=== PATIENT | female | born 1960 | race Caucasian/White ===

== ENCOUNTER 2018-04-13 13:24 | Emergency (ER) | payer BC ==
[2018-04-13 13:39] VITALS: TEMP 98.2
[2018-04-13] MEDS ORDERED: SODIUM CHLORIDE 0.9% 500 ML IV STA (14:02)
[2018-04-13] MEDS ORDERED: METOCLOPRAMIDE 5 MG/ML 2 ML VIAL IVP STA (14:03)
[2018-04-13] MEDS ORDERED: MECLIZINE 12.5 MG TAB PO STA (14:03)
--- NOTE | 2018-04-13 14:07 | ED ---
General Adult HPI - General Chief complaint: Dizziness Stated complaint: Dizziness Time Seen by Provider: 04/13/18 13:54 Source: patient, RN notes reviewed Mode of arrival: ambulatory Limitations: no limitations - History of Present Illness Initial comments: Patient is a pleasant 58-year-old female presenting to the emergency department with dizziness. Patient woke up in the middle the night and did feel somewhat dizzy. Patient got up this morning symptoms continue. Dizziness is described as a spinning type sensation. Symptoms worsen with upright position and movements. Symptoms improved with lying flat. No history of similar symptoms previously. Patient did check her blood pressure and found it to be approximately 220/100. - Related Data Home Medications Medication Instructions Recorded Confirmed Nebivolol HCl [Bystolic] 5 mg PO HS 06/21/14 04/13/18 Previous Rx's Medication Instructions Recorded Meclizine [Antivert] 25 mg PO TID PRN #12 tab 04/13/18 Allergies Allergy/AdvReac Type Severity Reaction Status Date / Time piperacillin sodium AdvReac Itching Verified 04/13/18 13:45 [From Zosyn] tazobactam sodium AdvReac Itching Verified 04/13/18 13:45 [From Zosyn] Review of Systems ROS Statement: Those systems with pertinent positive or pertinent negative responses have been documented in the HPI. ROS Other: All systems not noted in ROS Statement are negative. Constitutional: Denies: fever Eyes: Denies: eye pain ENT: Denies: ear pain Respiratory: Denies: dyspnea Cardiovascular: Denies: chest pain Endocrine: Denies: fatigue Gastrointestinal: Denies: abdominal pain Genitourinary: Denies: dysuria Musculoskeletal: Denies: back pain Skin: Denies: rash Neurological: Reports: vertigo. Denies: headache, weakness, confusion Past Medical History Past Medical History: Hypertension Additional Past Medical History / Comment(s): 03/29/15 Pt admitted to floor s/p excision of avulsion fx R patella and patellar tendon repair. Other HX: scoliosis, post menopausal History of Any Multi-Drug Resistant Organisms: None Reported Past Surgical History: Appendectomy, Back Surgery, Bowel Resection, Section, Cholecystectomy, Joint Replacement, Orthopedic Surgery, Tonsillectomy Additional Past Surgical History / Comment(s): 03/29/15 Exciison of avulsion fx R patella and patellar tendon repair R. Other SX: pedro arthroscopic knee(total 5), 06/22/14 total right knee replacement, 4 back surgeries, neurectomy chest area Past Anesthesia/Blood Transfusion Reactions: No Reported Reaction Past Psychological History: No Psychological Hx Reported Smoking Status: Never smoker - Past Family History Mother Family Medical History: Cancer Additional Family Medical History / Comment(s): unknown Father Family Medical History: Cancer General Exam Limitations: no limitations General appearance: alert, in no apparent distress Head exam: Present: atraumatic Eye exam: Present: normal appearance, PERRL, EOMI. Absent: nystagmus ENT exam: Present: normal oropharynx Neck exam: Present: normal inspection Respiratory exam: Present: normal lung sounds bilaterally Cardiovascular Exam: Present: regular rate, normal rhythm GI/Abdominal exam: Present: soft. Absent: tenderness Extremities exam: Present: normal inspection Neurological exam: Present: alert, oriented X3, CN II-XII intact. Absent: motor sensory deficit Expanded Neurological exam: Present: protecting the airway Speech: Present: fluid speech Cranial nerves: EOM's Intact: Normal Cerebellar function: Finger to Nose: Normal Sensory exam: Upper Extremity Light Touch: Normal, Lower Extremity Light Touch: Normal Motor strength exam: RUE: 5, LUE: 5, RLE: 5, LLE: 5 Eye Response: (4) open spontaneously Motor Response: (6) obeys commands Verbal Response: (5) oriented Psychiatric exam: Present: normal affect, normal mood Skin exam: Present: normal color Course Vital Signs 04/13/18 04/13/18 04/13/18 13:35 14:24 15:03 Temperature 98.2 F Pulse Rate 67 53 L 52 L Respiratory 16 18 18 Rate Blood Pressure 213/115 234/107 222/89 O2 Sat by Pulse 100 97 98 Oximetry EKG Findings - EKG Comments: EKG Findings:: Sinus bradycardia 54. DC 148. QRS 80. QT 422. QTC 400. Normal axis. LVH criteria. No acute ST change. Medical Decision Making - Medical Decision Making Patient reevaluated and significantly improved. Blood pressure 185/84. Patient and family updated on results and need for close follow-up. - Lab Data Result diagrams: 04/13/18 14:09 04/13/18 14:09 Lab Results 04/13/18 04/13/18 04/13/18 Range/Units 14:09 14:09 14:09 WBC 8.6 (3.8-10.6) k/uL RBC 5.02 (3.80-5.40) m/uL Hgb 15.5 (11.4-16.0) gm/dL Hct 45.8 (34.0-46.0) % MCV 91.3 (80.0-100.0) fL MCH 30.9 (25.0-35.0) pg MCHC 33.8 (31.0-37.0) g/dL RDW 12.8 (11.5-15.5) % Plt Count 318 (150-450) k/uL Neutrophils % 56 % Lymphocytes % 32 % Monocytes % 5 % Eosinophils % 4 % Basophils % 1 % Neutrophils # 4.9 (1.3-7.7) k/uL Lymphocytes # 2.8 (1.0-4.8) k/uL Monocytes # 0.4 (0-1.0) k/uL Eosinophils # 0.3 (0-0.7) k/uL Basophils # 0.1 (0-0.2) k/uL PT 10.2 (9.0-12.0) sec INR 1.0 (<1.2) APTT 25.0 (22.0-30.0) sec Sodium 141 (137-145) mmol/L Potassium 4.6 (3.5-5.1) mmol/L Chloride 109 H (98-107) mmol/L Carbon Dioxide 24 (22-30) mmol/L Anion Gap 8 mmol/L BUN 14 (7-17) mg/dL Creatinine 0.50 L (0.52-1.04) mg/dL Est GFR (CKD-EPI)AfAm >90 (>60 ml/min/1.73 sqM) Est GFR (CKD-EPI)NonAf >90 (>60 ml/min/1.73 sqM) Glucose 96 (74-99) mg/dL Calcium 9.5 (8.4-10.2) mg/dL Total Bilirubin 0.4 (0.2-1.3) mg/dL AST 30 (14-36) U/L ALT 44 (9-52) U/L Alkaline Phosphatase 81 (38-126) U/L Total Protein 7.0 (6.3-8.2) g/dL Albumin 4.2 (3.5-5.0) g/dL Urine Color Urine Appearance (Clear) Urine pH (5.0-8.0) Ur Specific [employer] (1.001-1.035) Urine Protein (Negative) Urine Glucose (UA) (Negative) Urine Ketones (Negative) Urine Blood (Negative) Urine Nitrite (Negative) Urine Bilirubin (Negative) Urine Urobilinogen (<2.0) mg/dL Ur Leukocyte Esterase (Negative) Urine RBC (0-5) /hpf Urine WBC (0-5) /hpf Ur Squamous Epith Cells (0-4) /hpf 04/13/18 Range/Units 14:30 WBC (3.8-10.6) k/uL RBC (3.80-5.40) m/uL Hgb (11.4-16.0) gm/dL Hct (34.0-46.0) % MCV (80.0-100.0) fL MCH (25.0-35.0) pg MCHC (31.0-37.0) g/dL RDW (11.5-15.5) % Plt Count (150-450) k/uL Neutrophils % % Lymphocytes % % Monocytes % % Eosinophils % % Basophils % % Neutrophils # (1.3-7.7) k/uL Lymphocytes # (1.0-4.8) k/uL Monocytes # (0-1.0) k/uL Eosinophils # (0-0.7) k/uL Basophils # (0-0.2) k/uL PT (9.0-12.0) sec INR (<1.2) APTT (22.0-30.0) sec Sodium (137-145) mmol/L Potassium (3.5-5.1) mmol/L Chloride (98-107) mmol/L Carbon Dioxide (22-30) mmol/L Anion Gap mmol/L BUN (7-17) mg/dL Creatinine (0.52-1.04) mg/dL Est GFR (CKD-EPI)AfAm (>60 ml/min/1.73 sqM) Est GFR (CKD-EPI)NonAf (>60 ml/min/1.73 sqM) Glucose (74-99) mg/dL Calcium (8.4-10.2) mg/dL Total Bilirubin (0.2-1.3) mg/dL AST (14-36) U/L ALT (9-52) U/L Alkaline Phosphatase (38-126) U/L Total Protein (6.3-8.2) g/dL Albumin (3.5-5.0) g/dL Urine Color Light Yellow Urine Appearance Clear (Clear) Urine pH 7.5 (5.0-8.0) Ur Specific [employer] 1.008 (1.001-1.035) Urine Protein Negative (Negative) Urine Glucose (UA) Negative (Negative) Urine Ketones Negative (Negative) Urine Blood Negative (Negative) Urine Nitrite Negative (Negative) Urine Bilirubin Negative (Negative) Urine Urobilinogen <2.0 (<2.0) mg/dL Ur Leukocyte Esterase Moderate H (Negative) Urine RBC <1 (0-5) /hpf Urine WBC 3 (0-5) /hpf Ur Squamous Epith Cells <1 (0-4) /hpf - Radiology Data Radiology results: report reviewed (Computed tomography scan the brain shows no acute intercranial hemorrhage or shift.) Disposition Clinical Impression: Vertigo, Hypertension Disposition: HOME SELF-CARE Condition: Stable Instructions: Dizziness (ED), Hypertension (ED) Additional Instructions: Please follow-up with primary care physician in the next day or 2 for recheck. Have primary care physician review chart as well as recheck blood pressure. Keep an eye on blood pressure at home as well. Return for uncontrolled blood pressure, increased dizziness, confusion, fever, weakness, change in mental status, worsening symptoms or other concerns. [id number] Antivert as needed. Prescriptions: Meclizine [Antivert] 25 mg PO TID PRN #12 tab PRN Reason: dizziness Is patient prescribed a controlled substance at d/c from ED?: No Referrals: Francis Mitchell MD [Primary Care Provider] - 1-2 days Time of Disposition: 15:40
[2018-04-13 14:25] VITALS: RESP 18
[2018-04-13 14:28] LABS: ALT 44 U/L (9-52); AST 30 U/L (14-36); Albumin 4.2 g/dL (3.5-5.0); Alkaline Phosphatase 81 U/L (38-126); Anion Gap 8 mmol/L; Basophils # (A) 0.1 k/uL (0-0.2); Basophils % (A) 1 %; Blood Urea Nitrogen 14 mg/dL (7-17); Calcium 9.5 mg/dL (8.4-10.2); Carbon Dioxide 24 mmol/L (22-30); Chloride 109 mmol/L (98-107); Eosinophils # (A) 0.3 k/uL (0-0.7); Eosinophils % (A) 4 %; Glucose 96 mg/dL (74-99); HCT 45.8 % (34.0-46.0); HGB 15.5 gm/dL (11.4-16.0); Lymphocytes # (A) 2.8 k/uL (1.0-4.8); Lymphocytes % (A) 32 %; MCH 30.9 pg (25.0-35.0); MCHC 33.8 g/dL (31.0-37.0); MCV 91.3 fL (80.0-100.0); Mean Platelet Volume 8.3; Monocytes # (A) 0.4 k/uL (0-1.0); Monocytes % (A) 5 %; Neutrophils # (A) 4.9 k/uL (1.3-7.7); Neutrophils % (A) 56 %; Platelet Count 318 k/uL (150-450); Potassium 4.6 mmol/L (3.5-5.1); RBC 5.02 m/uL (3.80-5.40); RDW 12.8 % (11.5-15.5); Sodium 141 mmol/L (137-145); Total Bilirubin 0.4 mg/dL (0.2-1.3); WBC 8.6 k/uL (3.8-10.6)
[2018-04-13 14:33] LABS: Prothrombin Time 10.2 sec (9.0-12.0)
[2018-04-13] MEDS ORDERED: ENALAPRILAT 1.25 MG/ML 1 ML VIAL IVP STA (15:05)
[2018-04-13 15:23] LABS: Appearance,Urine Clear (Clear); Bilirubin,Urine Negative (Negative); Blood,Urine Negative (Negative); Color,Urine Light Yellow; Glucose,Urine (UA) Negative (Negative); Ketones,Urine Negative (Negative); Leukocyte Esterase,Urine Moderate (Negative); Nitrite,Urine Negative (Negative); PH, Urine 7.5 (5.0-8.0); Protein,Urine Negative (Negative); RBC,Urine <1 /hpf (0-5); Specific Gravity,Urine 1.008 (1.001-1.035); Squamous Epithelial Cell,Urine <1 /hpf (0-4); Urobilinogen,Urine <2.0 mg/dL (<2.0); WBC,Urine 3 /hpf (0-5)
--- NOTE | 2018-04-13 15:26 | CT ---
EXAMINATION TYPE: CT brain wo con DATE OF EXAM: 04/13/2018 HISTORY: Hypertension and dizziness CT DLP: 1132 mGycm. Automated Exposure Control for Dose Reduction was Utilized. TECHNIQUE: CT scan of the head is performed without contrast. COMPARISON: None. FINDINGS: There is no acute intracranial hemorrhage or midline shift identified. There is diffuse v entricular and sulcal prominence consistent with diffuse age-related cerebral atrophy. There is low- attenuation in the periventricular white matter consistent with chronic small vessel ischemic change. The globes are intact and the visualized sinuses are clear. IMPRESSION: No acute intracranial hemorrhage or midline shift.
[2018-04-13 15:39] VITALS: BP 179/84; PULSE 49
== END 2018-04-13 15:52 | disposition home or self-care (01) ==
LOC: EC 13:24
DX: I10 Essential (primary) hypertension (principal); R42 Dizziness and giddiness; R40.2142 Coma scale, eyes open, spontaneous, at arrival to emergency department; R40.2252 Coma scale, best verbal response, oriented, at arrival to emergency department; R40.2362 Coma scale, best motor response, obeys commands, at arrival to emergency department; Z96.651 Presence of right artificial knee joint; Z79.899 Other long term (current) drug therapy; Z88.1 Allergy status to other antibiotic agents
CPT/HCPCS: 36415; 93005; 80053; 85025; 85610; 85730; 81001; 70450; 99284; 96374; 96375; 96361; J2765

== ENCOUNTER → 2018-06-30 | Outpatient (CLI) | payer BC ==
[2018-06-30 15:43] LABS: HCT 40.5 % (34.0-46.0); HGB 13.9 gm/dL (11.4-16.0); MCHC 34.3 g/dL (31.0-37.0); MCV 90.3 fL (80.0-100.0); Mean Platelet Volume 8.2; Platelet Count 323 k/uL (150-450); RBC 4.49 m/uL (3.80-5.40); RDW 13.1 % (11.5-15.5); WBC 9.4 k/uL (3.8-10.6)
[2018-06-30 15:47] LABS: INR 1.1 (<1.2); Partial Thromboplastin Time 24.2 sec (22.0-30.0); Prothrombin Time 10.3 sec (9.0-12.0)
[2018-06-30 16:01] LABS: ALT 35 U/L (9-52); AST 25 U/L (14-36); Albumin 4.2 g/dL (3.5-5.0); Alkaline Phosphatase 75 U/L (38-126); Anion Gap 8 mmol/L; Blood Urea Nitrogen 21 mg/dL (7-17); Carbon Dioxide 29 mmol/L (22-30); Chloride 102 mmol/L (98-107); Glucose 96 mg/dL (74-99); Potassium 4.4 mmol/L (3.5-5.1); Sodium 139 mmol/L (137-145); Total Bilirubin 0.4 mg/dL (0.2-1.3); Total Protein 6.9 g/dL (6.3-8.2)
[2018-06-30 16:09] LABS: Appearance,Urine Clear (Clear); Bilirubin,Urine Negative (Negative); Blood,Urine Negative (Negative); Color,Urine Yellow; Glucose,Urine (UA) Negative (Negative); Ketones,Urine Negative (Negative); Leukocyte Esterase,Urine Large (Negative); Mucus,Urine Rare /hpf; Nitrite,Urine Negative (Negative); Protein,Urine Negative (Negative); RBC,Urine <1 /hpf (0-5); Specific Gravity,Urine 1.018 (1.001-1.035); Squamous Epithelial Cell,Urine 1 /hpf (0-4); Urobilinogen,Urine <2.0 mg/dL (<2.0); WBC,Urine 17 /hpf (0-5)
== END | disposition home or self-care (01) ==
LOC: LABPAT 14:46
PROVIDERS: ATTEND Orthopaedic Surgery
DX: Z01.812 Encounter for preprocedural laboratory examination (principal)
CPT/HCPCS: 36415; 80053; 81001; 85027; 85610; 85730; 87070

== ENCOUNTER 2018-07-14 06:08 | Inpatient (IN) | payer BC ==
[2018-07-09 08:31] VITALS: BMI 31.8
[~2018-07-14 06:08] MED LIST: ACETAMINOPHEN TAB 500 MG TAB PO ONE; ONDANSETRON 4 MG/2 ML VIAL IVP ONE; TRANEXAMIC ACID 1,000 MG in SODIUM CHLORIDE 0.9% 50 ML IVPB ONE; ceFAZolin IN SWFI 2 GM/20 ML SYRINGE IVP ONE
[2018-07-14] MEDS: LACTATED RINGERS 1,000 ML IV SCH ×3 (06:50→20:29)
[2018-07-14] MEDS ORDERED: ROPIVACAINE 246.25 MG, EPINEPHrine 0.5 MG, KETOROLAC 30 MG, cloNIDine HCL/PF 80 MCG, WA... MISCELLANE ONE ×5 (07:45)
[2018-07-14] MEDS ORDERED: ceFAZolin 3,000 MG in SODIUM CHLORIDE 0.9% IRRIGATIO 3,000 ML IRRIGATION ONE (08:21)
[2018-07-14] MEDS ORDERED: LACTATED RINGERS 1,000 ML IV ONE ×2 (09:28)
[2018-07-14] MEDS ORDERED: NALOXONE 0.4 MG/ML 1 ML VIAL IV PRN (09:57)
[2018-07-14] MEDS ORDERED: NA PHOS,M-B/NA PHOS,DI-BA 133 ML ENEMA RECTAL PRN (09:57)
[2018-07-14] MEDS ORDERED: MAGNESIUM HYDROXIDE 2,400 MG/10 ML CUP PO PRN (09:57)
[2018-07-14] MEDS ORDERED: HYDROcodone/APAP 5-325MG 1 EACH TAB PO PRN (09:57)
[2018-07-14] MEDS ORDERED: BISACODYL 10 MG SUPP RECTAL PRN (09:57)
[2018-07-14] MEDS ORDERED: HYDROmorphone 1 MG/ML 1 ML SYRINGE IVP PRN ×2 (09:57)
--- NOTE | 2018-07-14 10:11 | P.OP ---
Date of Procedure: 07/14/18 Procedure(s) Performed: PREOPERATIVE DIAGNOSIS: Left knee severe osteoarthritis with genu varum POSTOPERATIVE DIAGNOSIS: Left knee severe osteoarthritis with genu varum, moderate to severe osteopenia OPERATION: Left knee cemented total replacement arthroplasty. ANESTHESIA: Spinal ESTIMATED BLOOD LOSS: 100 ml. CHEMICAL LABORATORY TECHNICIAN: Lesa Lee PA-C (assistance with: patient positioning, retraction, exposure, hemostasis, leg positioning, implantation, irrigation, closure, dressing) COMPLICATIONS: None apparent. COMPONENTS IMPLANTED: Persona system from [employer] INDICATIONS: Mrs. Lisa is a 58-year-old female with a history of left knee osteoarthritis. She is already successfully undergone right knee replacement from Dr. Haywood. Conservative treatment has been tried and has been unsuccessful in controlling symptoms adequately. The operation of knee replacement has been discussed at length in the office, as well as potential risks and complications. These are inclusive of, but not limited to: bleeding, infection , scarring, discomfort, blood vessel and nerve damage, need for further surgery , failure to relieve symptoms, persistence, recurrence, or worsening of problems , loosening, dislocation, wear, blood clot, pulmonary embolism, , gait dysfunction, stiffness, and other risks as discussed in the office. The patient elects to proceed and the consent form has been signed. PROCEDURE: The patient was taken to the operating room and positioned on the operating room table in the supine position. Anesthesia was initiated. Care was taken to make sure that all pressure points were adequately padded. The operative lower extremity was prepped and draped in the usual aseptic fashion using ChloraPrep. Ioban drape was used for the case and the patient received intravenous antibiotics within one hour of the incision. A pneumotourniquet and leg davies were used for the case. The limb was exsanguinated with an Esmarch bandage and the tourniquet was inflated to 350 mmHg. Time-out was called confirming the patient's identity, side, procedure and administration of antibiotics and tranexamic acid, 1 g IV. The incision was then created midline directly over the knee, carried down through skin and into the subcutaneous tissues and down to fascia. Full thickness subcutaneous medial flap was developed. Medial parapatellar arthrotomy was performed and the interior of the knee was inspected. There was end-stage osteoarthritis of the knee with a mild to moderate genu varum type deformity. The fat pad was excised and proximal medial release on the tibia was completed using meticulous dissection and a curved osteotome. The anterior cruciate ligament was taken down. Note was made of significant attrition of the anterior and significant degenerative appearance of the posterior cruciate ligaments. The exposure was excellent. The knee was flexed 90 degrees and the patella was everted. A spot was chosen on the femur approximately 1 cm anterior to the posterior cruciate ligament insertion and an intramedullary hole was created within the femur. The intramedullary guide was then set to 5 degrees of valgus. The distal cutting block was attached and pinned into position. An appropriate amount of distal femoral resection was set. The oscillating saw was then used to make the distal femoral cut. This cut was confirmed to be flat with the flat end of an osteotome. The retractors were placed around the tibia and the tibial surface was addressed. The angle and depth of resection was adjusted using an extramedullary cutting guide. The guide had a built-in 3 degree posterior slope cut. Once the cutting guide was adjusted appropriately and in line with the axis of the tibia and confirmed to be in good position in relation to the second metatarsal and transmalleolar axis, the tibial cut was then created with protection of the posterior neurovascular structures and the collateral ligaments. The tibial cut surface was removed and sized. Note was made of moderate to severe osteopenia and therefore we prepared for a longer stemmed tibial component. Femoral sizing was then accomplished using anterior referencing. Care was taken to analyze the posterior condyles for signs of deficiency or severe wear, and adjustments to the guide were made, as appropriate. 3 degree external rotation pins were placed. The cutting jig for the femur was applied to these pins. The planned cuts were further analyzed prior to performing them with the oscillating saw. No femoral notching was produced. Bone fragments were removed and the cut surfaces were finished, as necessary, with a reciprocating saw. Spacer block technique was then used to confirm that the flexion and extension gaps were equal. Soft tissue releases and adjustment of the tibial and/or femoral cuts were made, as necessary, until the gaps were equal. This included release of the posterior cruciate ligament, which was tight in this patient. The femur was then further finished for a posterior cruciate ligament substituting component. Patellar resurfacing was performed using a reamer. The size of the required patellar component was estimated and the patellar surface was then reamed down to a residual thickness which would recreate the walker river thickness with the component. The exact placement of the patellar component was adjusted for position based on preoperative x-rays and intraoperative findings. Prior to placing trial components, anesthetic solution consisting of ropivicaine with epinephrine, ketorolac, and clonidine was injected carefully and methodically in a grid pattern using aspiration technique into the soft tissue around the knee circumferentially, starting with the deeper tissues first and progressing to fascia, and then finally the skin/subcutaneous tissue. Particular care was taken when injecting the posterior capsule. The trial components were inserted. The tibial tray was allowed to self center and the patella was noted to track very well. The position of the tibial component was marked and the tibia was then finished for a stemmed tibial component. Cement was mixed on the back table and applied to the final components. Trial components were removed and the cut surfaces of the bone were pulse lavaged thoroughly and dried. Cement was then applied to the tibial surface and pressurized into the surface using finger pressurization technique. The tibial component with a 30 mm stem extension was then applied and excess cement was removed after it was impacted securely and noted to be flush with the cut surface. In similar fashion, the cement was applied to the cut femoral surface, pressurized in using finger pressurization and the component was impacted into place. Excess cement was removed. The polyethylene spacer was then implanted and locked into position. The patellar component was then applied in similar technique and a patellar clamp was used to hold the patella in place as the cement hardened. Once the cement had fully hardened, the knee was reinspected. Any other cement extrusion was removed and final kinematic testing showed range of motion from 0 to 130 degrees with excellent stability, both medially and laterally and appropriate alignment of the leg. Patellar tracking was excellent. The knee was then thoroughly pulse lavaged with normal saline. The tourniquet was deflated and hemostasis was obtained with electrocautery and IV tranexamic acid, 1 g given prior to inflation of the tourniquet and another gram given at the time of closure. Closure was with #2 Ethibond in the fascia and supplemented with #2 Quill, 2-0 Vicryl suture was used for the subcutaneous tissues and 3-0 Quill for the skin. Dermabond/Steri-Strips were then applied. A lightly compressive dressing was applied using Webril and an Efraín wrap. The patient was then [facility] and taken to the recovery room in stable condition. Sponge and needle counts were correct.
[2018-07-14] MEDS ORDERED: HYDROmorphone 1 MG/ML 1 ML SYRINGE IVP ONE ×2 (10:34→11:00)
--- NOTE | 2018-07-14 13:13 | XR ---
EXAMINATION TYPE: XR knee limited LT DATE OF EXAM: 07/14/2018 COMPARISON: NONE TECHNIQUE: Two views submitted HISTORY: Post op FINDINGS: There is a prosthetic knee in near anatomic alignment. There is soft tissue edema and emphysema. IMPRESSION: 1. Postoperative change. Appears in near-anatomic alignment
[2018-07-14] MEDS: HYDROmorphone 1 MG/ML 1 ML SYRINGE IVP PRN ×2 (16:40→23:22)
[2018-07-14] MEDS: ceFAZolin IN SWFI 2 GM/20 ML SYRINGE IVP SCH ×2 (16:41→23:23)
[2018-07-14] MEDS: HYDROcodone/APAP 5-325MG 1 EACH TAB PO PRN (19:01)
[2018-07-14] MEDS: SENNOSIDES-DOCUSATE SODIUM 1 EACH TAB PO SCH (20:29)
[2018-07-15] MEDS: ATORVASTATIN 20 MG TAB PO SCH ×2 (00:01→19:46)
[2018-07-15] MEDS: LISINOPRIL-HCTZ 10-12.5 MG 1 EACH TAB PO SCH ×2 (00:01→19:46)
[2018-07-15] MEDS: HYDROcodone/APAP 5-325MG 1 EACH TAB PO PRN ×2 (00:51→08:03)
[2018-07-15] MEDS: HYDROmorphone 1 MG/ML 1 ML SYRINGE IVP PRN (04:09)
[2018-07-15 07:11] LABS: Basophils # (A) 0.1 k/uL (0-0.2); Basophils % (A) 1 %; Eosinophils # (A) 0.4 k/uL (0-0.7); Eosinophils % (A) 3 %; HCT 38.4 % (34.0-46.0); HGB 11.8 gm/dL (11.4-16.0); Lymphocytes # (A) 2.3 k/uL (1.0-4.8); Lymphocytes % (A) 22 %; MCH 29.1 pg (25.0-35.0); MCHC 30.8 g/dL (31.0-37.0); MCV 94.6 fL (80.0-100.0); Mean Platelet Volume 8.9; Monocytes # (A) 0.6 k/uL (0-1.0); Monocytes % (A) 6 %; Neutrophils # (A) 7.2 k/uL (1.3-7.7); Neutrophils % (A) 68 %; Platelet Count 279 k/uL (150-450); RBC 4.06 m/uL (3.80-5.40); RDW 13.3 % (11.5-15.5); WBC 10.6 k/uL (3.8-10.6)
[2018-07-15] MEDS: LACTATED RINGERS 1,000 ML IV SCH ×3 (07:52→19:42)
--- NOTE | 2018-07-15 07:59 | CONS ---
CONSULTATION DATE OF SERVICE OF CONSULTATION: 07/14/2018. REASON FOR CONSULTATION: Medical management requested by Dr. Siddiqi. CONSULTATION: This is a very pleasant 58-year-old patient of Dr. Mitchell. Chronic stable medical conditions include hypertension, hyperlipidemia, primary osteoarthritis. The patient today underwent left total knee arthroplasty. Pain is controlled. No nausea or vomiting. Patient did tolerate supper. No chest pain or short of breath. Denies any cardiac history. The patient is getting Xarelto for DVT prophylaxis. Lying in bed, comfortable. REVIEW OF SYSTEMS: CONSTITUTIONAL: None. HEENT: None. RESPIRATORY: None. CARDIOVASCULAR: None. GASTROINTESTINAL: None. GENITOURINARY: None. MUSCULOSKELETAL: Arthritic pain in many joints. DERMATOLOGICAL: None. HEMATOLOGIC: None. LYMPHATIC: None. PSYCHIATRY: None. NEUROLOGICAL: None. PAST MEDICAL HISTORY: Past medical history of hypertension, hyperlipidemia, hiatal hernia, osteoarthritis, migraines, scoliosis, diverticulitis, vertigo. PAST SURGICAL HISTORY: Appendectomy, back surgery, bowel resection, , cholecystectomy, joint replacement, bilateral arthroscopic knee, right total knee replacement, 4 back surgeries, neurectomy left side of the chest area. SOCIAL HISTORY: Does not smoke. Alcohol rarely. . FAMILY HISTORY: Family history of cancer type unknown. HOME MEDICATIONS: 1. Zestoretic 05/30.5 one tablet p.o. q.h.s. 2. [place] 5 one to two tablets q.6 p.r.n. 3. Lipitor 20 mg q.h.s. 4. Ventolin HFA 1 or 2 puffs q.6 p.r.n. 5. Tylenol PM 1 tablet p.o. q.h.s. p.r.n. 6. Senokot-S 1 tablet p.o. b.i.d. 7. Xarelto 10 mg p.o. daily. 8. [place] 5 1-2 tablets q.4 p.r.n. 9. Aspirin 81 mg p.o. daily. ALLERGIES: Allergies to Zosyn. PHYSICAL EXAMINATION: On examination, temperature 97.4, pulse 66, respirations 18, blood pressure 135/61, pulse ox 99% on room air. GENERAL APPEARANCE: Well built, BMI 31.9. Lying in bed, comfortable, awake. EYES: Pupils equal. Conjunctivae normal. HENT: External appearance of nose and ears normal. Oral cavity normal. NECK: JVD not raised. Mass not palpable. RESPIRATORY: Effort normal. LUNGS: Fair entry. CARDIOVASCULAR: First and second sounds normal. No edema. ABDOMEN: Soft, nontender. Liver and spleen not palpable. LYMPHATIC: No lymph node palpable of the neck and axillae. PSYCHIATRY: Alert and oriented x3. Mood and affect normal NEUROLOGICAL: Pupils equal. Cranial nerves grossly intact. Power and sensation grossly intact. MUSCULOSKELETAL: Evidence of OA especially in the hands and there is dressing over the left knee. INVESTIGATIONS: Potassium 4.4. BUN 21, creatinine 0.68. Hemoglobin 13.9. These labs are from 06/30/2018. ASSESSMENT: 1. Left total knee arthroplasty. 2. Essential hypertension. 3. Hyperlipidemia. 4. Primary osteoarthritis. 5. Obesity, body mass index 31.9. PLAN: Home medications are resumed. Patient is on IV fluids, pain medications, also on Xarelto for DVT prophylaxis per Dr. Siddiqi. Care was discussed with the patient. Patient should see a dietitian as an outpatient for weight loss. Thank you Dr. Siddiqi. [id number] / IJN: [id number] /
[2018-07-15] MEDS: MELOXICAM 7.5 MG TAB PO SCH (08:02)
[2018-07-15] MEDS: RIVAROXABAN 10 MG TAB PO SCH (08:04)
[2018-07-15] MEDS ORDERED: HYDROcodone/APAP 7.5-325MG 1 EACH TAB PO PRN (08:10)
--- NOTE | 2018-07-15 08:17 | P.DS ---
Providers Date of admission: 07/14/18 06:08 Expected date of discharge: 07/15/18 Attending physician: Wil Siddiqi Consults: 07/14/18 13:07 Consult Physician Urgent Consulting Provider: Francis Mitchell Consult Reason/Comments: medical management Do you want consulting provider notified?: Yes 07/14/18 14:50 Consult Physician Routine Consulting Provider: Ulysses Paris Consult Reason/Comments: medical management Do you want consulting provider notified?: Yes Primary care physician: Francis Mitchell - Discharge Diagnosis(es) (1) Osteoarthritis of left knee Current Visit: Yes Status: Acute (2) Status post total left knee replacement Current Visit: Yes Status: Acute Hospital Course: This is a 58-year-old female who was last seen with complaint of continued left knee pain. The patient has a known history of degenerative arthritis of the left knee and presents to discuss surgical options. After discussion and consideration the patient elects to proceed with total left knee arthroplasty. The patient is seen preoperatively by Dr. Mitchell and cleared for surgery. The patient is admitted to [facility] for total left knee arthroplasty. The procedures performed without complication or sequelae. She is doing well postoperatively. She is having some pain management issues this morning. Vital signs are stable at discharge. Labs are stable at discharge. the patient is ambulating well with walker with minimal assistance. I have increased her Adams to 7.5 mg. We will hopefully get her pain better controlled by this afternoon and plan discharged to home today. The patient is discharged to home on postop day #1 pending medical clearance. Please see orders and refer to the [facility] rec for accurate list of medications. Patient Condition at Discharge: Good Plan - Discharge Summary Discharge Rx Participant: Yes New Discharge Prescriptions: New Aspirin [Adult Low Dose Aspirin EC] 81 mg PO DAILY #1 tablet. Rivaroxaban [Xarelto] 10 mg PO DAILY #5 tab Sennosides-Docusate Sodium [Senokot-S] 1 tab PO BID #60 tablet HYDROcodone/APAP 7.5-325MG [Adams 7.5-325] 1 - 2 tab PO Q4-6H PRN #50 tab PRN Reason: Pain Discontinued HYDROcodone/APAP 5-325MG [Adams 5-325] 1 - 2 tab PO Q6HR PRN PRN Reason: Pain No Action Acetaminophen/Diphenhydramine [Tylenol PM Extra Strength] 1 tab PO HS PRN PRN Reason: Pain Atorvastatin Calcium [Lipitor] 20 mg PO HS Albuterol Inhaler [Ventolin Hfa Inhaler] 1 - 2 puff INHALATION RT-Q6H PRN PRN Reason: Wheezing Lisinopril-Hctz 10-12.5 mg [Zestoretic 10-12.5] 1 tab PO HS Discharge Medication List Acetaminophen/Diphenhydramine [Tylenol PM Extra Strength] 1 tab PO HS PRN [History] Albuterol Inhaler [Ventolin Hfa Inhaler] 1 - 2 puff INHALATION RT-Q6H PRN [History] Atorvastatin Calcium [Lipitor] 20 mg PO HS 07/09/18 [History] Lisinopril-Hctz 10-12.5 mg [Zestoretic 10-12.5] 1 tab PO HS 07/09/18 [History] Aspirin [Adult Low Dose Aspirin EC] 81 mg PO DAILY #1 tablet.dr 07/14/18 [Rx] Rivaroxaban [Xarelto] 10 mg PO DAILY #5 tab 07/14/18 [Rx] Sennosides-Docusate Sodium [Senokot-S] 1 tab PO BID #60 tablet 07/14/18 [Rx] HYDROcodone/APAP 7.5-325MG [Adams 7.5-325] 1 - 2 tab PO Q4-6H PRN #50 tab [Rx] Follow up Appointment(s)/Referral(s): Lesa Lee, PAC [PHYSICIAN EDUCATION PROGRAM MANAGER] - 2 Weeks Ambulatory/Diagnostic Orders: Continuous Passive Motion (CPM) Machine [DME.AMB1] Time Frame: 3 Weeks, Facility : [facility], Location: Case Management Activity/Diet/Wound Care/Special Instructions: WBAT w walker. May shower if no drainage from incision. CPM 5-6h daily.
[2018-07-15] MEDS: hydrOXYzine PAMOATE 25 MG CAP PO PRN ×2 (11:06→13:39)
[2018-07-15] MEDS: HYDROcodone/APAP 7.5-325MG 1 EACH TAB PO PRN ×2 (13:38→19:45)
[2018-07-15] MEDS: SENNOSIDES-DOCUSATE SODIUM 1 EACH TAB PO SCH (19:46)
--- NOTE | 2018-07-16 00:08 | PN ---
PROGRESS NOTE DATE OF SERVICE: 07/15/2018. PRESENTING COMPLAINT: Left knee surgery. INTERVAL HISTORY: Patient is status post left knee surgery, doing well. Has been out of bed. Pain is controlled. No nausea or vomiting. Did tolerate a diet. Did work with Therapy. REVIEW OF SYSTEMS: Done for constitutional, cardiovascular, GI, pulmonary, musculoskeletal; relevant findings as above. CURRENT MEDICATIONS: Reviewed. PHYSICAL EXAMINATION: Temperature 98, pulse 72, respirations 15, blood pressure 122/84, pulse ox 98% on room air. GENERAL APPEARANCE: Lying in bed comfortable. EYES: Pupils equal. Conjunctivae normal. HEENT: External appearance of nose and ears normal. Oral cavity normal. NECK: JVD not raised. Mass not palpable. Respiratory effort normal. LUNGS: Clear. CARDIOVASCULAR: 1st and 2nd sounds normal. No edema. ABDOMEN: Soft, nontender. Liver and spleen not palpable. PSYCHIATRY: Alert and oriented x3. Mood and affect normal. INVESTIGATIONS: White count 10.6, hemoglobin 11.8. ASSESSMENT: 1. Left total knee arthroplasty. 2. Essential hypertension. 3. Hyperlipidemia. 4. Primary osteoarthritis. 5. Obesity, BMI 31.9. PLAN: Care was discussed with the patient. Doing well. Continue treatment plan. MMODL / IJN: [id number] /
[2018-07-16] MEDS: LACTATED RINGERS 1,000 ML IV SCH ×3 (03:11→15:11)
[2018-07-16] MEDS: RIVAROXABAN 10 MG TAB PO SCH (08:20)
[2018-07-16] MEDS: MELOXICAM 7.5 MG TAB PO SCH (08:20)
[2018-07-16] MEDS: HYDROcodone/APAP 7.5-325MG 1 EACH TAB PO PRN ×2 (08:21→15:09)
[2018-07-16 08:25] VITALS: RESP 18
--- NOTE | 2018-07-16 09:46 | P.PN ---
Progress Note - Text Progress Note Date: 07/16/18 This is a 58-year-old female who is status post total left knee arthroplasty. Her discharge was held yesterday secondary to pain management issues. She is feeling better today and ready for discharge home. Incision reveals no erythema or ecchymosis. Minimal soft tissue swelling noted. No active drainage. Dermabond tape is intact. She has full foot ankle motion without difficulty or pain. Neurovascular status to the left lower extremity is intact. Discharge to home today. Please see previous discharge summary and med rec.
[2018-07-16 14:45] VITALS: BP 95/59; PULSE 79; TEMP 98.4
--- NOTE | 2018-07-17 07:19 | PN ---
PROGRESS NOTE DATE OF SERVICE: 07/16/2018 PRESENTING COMPLAINT: Left knee surgery. INTERVAL HISTORY: This patient was seen by me yesterday on 07/16/2018. Doing well. Pain is better controlled. Did tolerate her diet. No nausea, vomiting. No chest pain or short of breath. is present. No new issues. REVIEW OF SYSTEMS: Done for constitutional, cardiovascular, GI, pulmonary, musculoskeletal; relevant findings as above. CURRENT MEDICATIONS: Current medications are reviewed. PHYSICAL EXAMINATION: On examination, temperature 97.7, pulse 97, respiratory 18, blood pressure 120/76, pulse ox 97% on room air. GENERAL APPEARANCE: Sitting up in a chair, comfortable. EYES: Pupils equal. Conjunctivae normal. NECK: JVD not raised. Mass not palpable. RESPIRATORY: Effort normal. Lungs are clear. CARDIOVASCULAR: First and second sounds normal. No edema. ABDOMEN: Soft, nontender. Liver and spleen not palpable. PSYCHIATRY: Alert and oriented x3. Mood and affect normal. INVESTIGATIONS: White count 10.6, hemoglobin 11.8. ASSESSMENT: 1. Left total knee arthroplasty. 2. Essential hypertension. 3. Hyperlipidemia. 4. Primary osteoarthritis. 5. Obesity, body mass index 31.9. PLAN: Care was discussed with the patient and . Questions were answered. Thank you. Follow up with PCP next week. MMODL / IJN: [id number] /
== END 2018-07-16 16:06 | disposition home or self-care (01) | DRG 470 ==
LOC: 2ORMAIN 06:08 → 4SSUR 14:24
PROVIDERS: ADMIT Orthopaedic Surgery; ATTEND Orthopaedic Surgery
PROC: 0SRD0J9 Replacement of Left Knee Joint with Synthetic Substitute, Cemented, Open Approach (ICD-10-PCS; principal; 2018-07-14 08:00)
DX: M17.12 Unilateral primary osteoarthritis, left knee (principal); E66.9 Obesity, unspecified; E78.5 Hyperlipidemia, unspecified; I10 Essential (primary) hypertension; M21.162 Varus deformity, not elsewhere classified, left knee; M41.9 Scoliosis, unspecified; M85.80 Other specified disorders of bone density and structure, unspecified site; Z68.31 Body mass index [BMI] 31.0-31.9, adult; Z79.01 Long term (current) use of anticoagulants; Z79.82 Long term (current) use of aspirin; Z79.899 Other long term (current) drug therapy; Z88.1 Allergy status to other antibiotic agents; Z82.49 Family history of ischemic heart disease and other diseases of the circulatory system
CPT/HCPCS: 85025; 88300

== ENCOUNTER → 2020-04-21 | Outpatient (CLI) | payer BC ==
--- NOTE | 2020-04-21 08:47 | CT ---
EXAMINATION TYPE: CT lumbar spine wo con DATE OF EXAM: 04/21/2020 8:35 AM COMPARISON: None HISTORY: Low connor pain, scoliosis CT DLP: 1384 mGycm Automated exposure control for dose reduction was used. Unenhanced CT of the lumbar spine was performed. Bone and soft tissue window settings are submitted as well as coronal and sagittal reconstructions. There is severe scoliotic curvature convex to the left. L1-L2: Severe degenerative disc space narrowing. No significant disc herniation or disc bulging. No c entral stenosis. Fusion changes noted. No central stenosis. Foramina are patent. L2-L3: Severe degenerative disc space narrowing. No significant disc herniation or disc bulging. No c entral stenosis. Fusion changes noted. No central stenosis. Foramina are patent. L3-L4: Severe degenerative disc space narrowing. No significant disc herniation or disc bulging. No c entral stenosis. Fusion changes noted. No central stenosis. Foramina are patent. L4-L5: 4 mm anterolisthesis L4 and L5. Moderate degenerative disc space narrowing or disc bulge. Post erior elements demonstrate bony fragmentation. There is evidence for moderate central stenosis. Bilat eral foraminal encroachment. L5-S1: Severe degenerative disc space narrowing. No significant disc herniation or disc bulging. No c entral stenosis. Fusion changes noted with posterior bony fragmentation seen.. No central stenosis. F oramina are patent. IMPRESSION: 1. Severe scoliosis convex to the left. 2. Extensive postoperative changes of fusion. 3. Grade 1 anterolisthesis L4 and L5 posterior disc bulge and moderate central stenosis.
== END | disposition home or self-care (01) ==
LOC: RADCTMAIN 07:51
PROVIDERS: ATTEND Orthopaedic Surgery Orthopaedic Surgery of the Spine
DX: M48.061 Spinal stenosis, lumbar region without neurogenic claudication (principal); M43.16 Spondylolisthesis, lumbar region; M51.16 Intervertebral disc disorders with radiculopathy, lumbar region; M41.9 Scoliosis, unspecified; Z98.890 Other specified postprocedural states
CPT/HCPCS: 72131

== ENCOUNTER 2020-06-29 11:18 | Inpatient (IN) | payer BC ==
[2020-06-27 10:11] VITALS: BMI 28.7
[~2020-06-29 11:18] MED LIST changes: -ACETAMINOPHEN TAB 500 MG TAB PO ONE; +DEXAMETHASONE SOD PHOSPHATE 4 MG/ML 1 ML VIAL IV ONE; +LIDOCAINE 1% (10MG/ML) FOR IV START INTRADERMA PRN; -TRANEXAMIC ACID 1,000 MG in SODIUM CHLORIDE 0.9% 50 ML IVPB ONE; +ceFAZolin 1,000 MG in SODIUM CHLORIDE 0.9% IRRIGATIO 1,000 ML IRRIGATION ONE; -ceFAZolin IN SWFI 2 GM/20 ML SYRINGE IVP ONE
[2020-06-29] MEDS: LACTATED RINGERS 1,000 ML IV SCH ×2 (12:14→21:37)
[2020-06-29] MEDS ORDERED: GLYCOPYRROLATE 0.2 MG/ML 2 ML VIAL ONE (12:33)
[2020-06-29] MEDS ORDERED: ONDANSETRON 4 MG/2 ML VIAL ONE (12:33)
[2020-06-29] MEDS ORDERED: HEPARIN SODIUM,PORCINE 10,000 UNIT/ML 1 ML VIAL ONE (12:33)
[2020-06-29] MEDS ORDERED: PROPOFOL 10 MG/ML 20 ML VIAL IV ONE (12:33)
[2020-06-29] MEDS ORDERED: SODIUM CHLORIDE 0.9% IRRIG 1,000 ML BTL IRRIGATION ONE (12:33)
[2020-06-29] MEDS ORDERED: SUCCINYLCHOLINE CHLORIDE 100 MG/5 ML SYR IV ONE (12:33)
[2020-06-29] MEDS ORDERED: KETAMINE 10 MG/ML 20 ML VIAL ONE (12:33)
[2020-06-29] MEDS ORDERED: MIDAZOLAM 2 MG/2 ML VIAL ONE (12:33)
[2020-06-29] MEDS ORDERED: PHENYLEPHRINE-0.9% NACL SYG 1 MG/10 ML SYRINGE ONE (12:33)
[2020-06-29] MEDS ORDERED: LIDOCAINE 1% INJ 10MG/ML (20 ML MDV) ONE (12:33)
[2020-06-29] MEDS ORDERED: fentaNYL (PF) 50 MCG/ML 2 ML AMP ONE (12:33)
[2020-06-29] MEDS ORDERED: NEOSTIGMINE 1 MG/ML 10 ML VIAL ONE (12:33)
[2020-06-29] MEDS ORDERED: ROCURONIUM 10 MG/ML (10 ML VIAL) IV ONE (12:33)
[2020-06-29] MEDS ORDERED: GELATIN SPONGE,ABSORB (LARGE) 1 EACH SPONGE TOPICAL ONE (12:38)
[2020-06-29] MEDS ORDERED: LIDOCAINE 0.5%-EPI 1:200,000 50 ML VIAL SQ ONE (12:38)
[2020-06-29] MEDS ORDERED: THROMBIN (BOVINE) 5,000 UNIT VIAL TOPICAL ONE (12:38)
[2020-06-29] MEDS ORDERED: LACTATED RINGERS 1,000 ML IV ONE ×2 (14:25→18:33)
[2020-06-29] MEDS ORDERED: HYDROmorphone 0.5 MG/0.5 ML SYRINGE IVP PRN (15:48)
[2020-06-29] MEDS ORDERED: ONDANSETRON 4 MG/2 ML VIAL IVP PRN (15:48)
[2020-06-29] MEDS ORDERED: HYDROcodone/APAP 5-325MG 1 EACH TAB PO PRN ×3 (15:48→15:51)
[2020-06-29] MEDS ORDERED: MAGNESIUM HYDROXIDE 2,400 MG/10 ML CUP PO PRN (15:48)
[2020-06-29] MEDS ORDERED: BENZOCAINE/MENTHOL LOZENG 1 EACH LOZENGE MUCOUS MEM PRN (15:48)
--- NOTE | 2020-06-29 15:53 | FL ---
Fluoroscopy History: Min Inv Lum Fusion Minimally invasive lumbar fusion. Dr. Menjivar. 22 sec fluoro time. 2 images scanned.
[2020-06-29] MEDS: HYDROmorphone 1 MG/ML 1 ML SYRINGE IVP ONE ×4 (15:58→16:21)
--- NOTE | 2020-06-29 16:01 | P.OP ---
Date of Procedure: 06/29/20 Preoperative Diagnosis: Scoliosis, pseudoarthrosis L4 5, history of prior thoracic lumbar fusion, low back pain, degenerative disc disease, lower extremity radiculopathy Postoperative Diagnosis: Same Anesthesia: GETA Pathology: none sent Condition: stable Disposition: PACU Description of Procedure: DESCRIPTION OF PROCEDURE(S): BRIEF OPERATIVE NOTE Preoperative Diagnosis: Scoliosis, pseudoarthrosis L4 5, history of prior thoracic lumbar fusion, low back pain, degenerative disc disease, lower extremity radiculopathy Postoperative Diagnosis: Same Procedure: Laminectomy and decompression L4 [address] navigation aided Minimally invasive revision Posterior lateral decompression and facet fusion L4 5 Minimally invasive Transforaminal lumbar interbody revision fusion for a 360 fusion L4 5 Discectomy for decompression L4 5 Placement of interbody graft for 5 Use of computer navigation for fusion Local autogenous bone grafting Aspiration of bone marrow from the vertebral body pedicle L4 on the right Use of bone graft extenders Surgeon: Dr. Menjivar Information Technology Audit Manager: Edward WINTER who is present throughout the entire the case persistence during positioning, dissection, exposure, visualization, and all crucial elements of the case as well as closure. Anesthesia: General anesthesia per Estimated blood loss: Approximately 150 mL Complications: None apparent Components implanted: K2M minimally invasive Glasgow pedicle screw system withscrews measuring 6.5 mm in diameter to rods one expandable 8-13 interbody cage with 10 mL of osteo amp bio4 bone graft substitute and 30 mL of the BX bone fibers to supplement the local autogenous bone graft and bone marrow aspirate Disposition: To recovery room in good stable condition. OPERATIVE INDICATIONS The patient has had severe issues at their lower extremity in her lower back over the past several years with significant worsening over the past several months. The patient has a long history of scoliosis and in her youth she underwent major thoracolumbar fusion of her scoliosis. She overall she had a good result she had her hardware removed in the distant past. She had done well except that over the past several years she has had some worsening pain at her lower back. Over the past few months the patient had increasing pain pain at her back particularly when she would try to mobilize and ambulate and her lower extremity. She is having worsening mobility and significant debility because of her pain at her lower back The patient is having significant pain in her back. They are unable to obtain any comfort. We did aggressive conservative treatment with medications therapy and interventional pain management however she was not having any relief. The patient has been through conservative treatment. I think it is possible patient had long-standing pseudoarthrosis which was essentially stable for her. However she had some issues and I think developed instability at the pseudoarthrosis at L4 5. Imaging correlated with the pseudoarthrosis at L4 5 and her exam: With her imaging and symptoms I felt that the vast majority of her symptoms are stemming from the pseudo arthrosis at L4 5. We discussed various treatment options including surgery, and the patient wishes to proceed with surgery We discussed the risk, patient's alternatives and benefits of surgery including but not limited to, risk of bleeding risk of infection, risk of need for further surgery, risk of decreased, loss of motion, muscle function, malunion nonunion, hardware failure, nerve damage, paralysis, heart attack, blindness and . They understood issues with the current pandemic and the possibility of exposure. OPERATIVE SUMMARY After discussing all the risks, patient alternatives and benefits at length, the patient elected to proceed with surgical intervention, signed informed consent, and presented for their procedure. The patient was seen and examined in the preoperative holding area and the surgical site was marked. The patient was given antibiotics and brought to the operating room. The patient was sedated and intubated by anesthesia in standard fashion. The patient was positioned on to the operating room table in a prone position on the appropriate frame which was well-padded and well molded. We were careful to pad any bony prominences and pressure points. We were careful to maintain the patient's cervical spine and good neutral alignment and position throughout. The patient was prepped and draped in a normal standard fashion. An appropriate timeout and keystone protocol performed. We were able to proceed with the surgery. The local wound area was infiltrated with local anesthetic. Over the right iliac crest I was able to make small stab incisions and establish a guidepin screw fixation to the iliac crest 2. I was able place the computer referencing device over the guidepins to establish an appropriate reference point for the Ziem CT navigation. We then were able to place patient in an appropriate drape and do a navigation spin for visualization and 3-D reconstruction of the lumbar spine. I was able utilize C-arm guidance and navigation to establish appropriate position over the pedicles bilaterally at the appropriate levels . With the appropriate levels confirmed was able to make small stab incisions over the appropriate pedicle sites bilaterally. Utilizing the computer navigation device I was able to establish bony landmarks at the right iliac crest for a bony reference point for the navigation device. These navigation device was extremely helpful in this case as patient had major deformity with prior surgeries and significant altered anatomy which would've made a standard procedure much more difficult. The CT navigation device allowed us to navigate through the anatomy with more reliable safety and position. I was able to establish a Jamshidi needle over the lateral aspect of the pedicle and advanced the trocar into the pedicle being careful not to breech superiorly inferiorly medially or laterally using computer navigation device. Position was confirmed regularly with AP and lateral images on C-arm and with the computer navigation device at the appropriate levels bilaterally. I was able to establish the trocar into the pedicle appropriately into the posterior aspect of the vertebral body bilaterally at the appropriate levels. This was done at each of the pedicle positions and each of the vertebrae. At the superior vertebrae of L4 I was able to take approximately 25 mL of bone aspiration for use later in the case to supplement the allograft and autograft bone. I was able place the guidewire into the trocar and into the vertebral body appropriately under C-arm guidance. Dissection was taken down over the wire to the appropriate starting position for the screw placed. The appropriate length screw was chosen, threaded over the guidewire and screwed appropriately into the pedicle and vertebral body under C-arm guidance in excellent alignment and position with good bony purchase. This is done at each of the screw sites at the appropriate levels at L4 and 5.. With the screws intact I extended the incision to connect the screw hole sites on the most symptomatic side on the left. I dissected down to establish access over the pars and lamina to the base of the spinous process. I was able to expose the facet joint. There is significant amounts of heterotopic bone from her prior fusion which had to be harvested and taken down. The capsule the facet was taken down and showed some facet arthrosis at the joint. I was able to use a combination of curettes and Kerrison rongeurs and a high-speed drill to take down the facet joint and do a facetectomy. I was able get excellent foraminal decompression and central decompression with undermining across midline to perform a laminectomy centrally and contralaterally. As able get good central decompression. The ligamentum flavum was taken down to further decompress centrally and at bilateral neural foramen. I was able to expose the disc space and visualize the traversing nerve root. Note was made of some disc protrusion and disc herniation that was abutting the traversing nerve root at the level causing further compression of the nerve root. I was able to establish a annulotomy at the appropriate level protecting soft tissue and neural structures. Note was made of some disc desiccation at the disc. I performed a complete discectomy with accommodation of curettes and rasps and scrapers. I was able get good endplate preparation at the disc space. I sized for the appropriate size interbody spacer protecting the soft tissue and neural structures. The wound was copiously irrigated and suctioned dry. There is no evidence of any dural tear or leak. I was able to pack the disc space with local autogenous bone graft as well as a small amount of bone graft which was also placed into the interbody cage itself. Protecting the soft tissue structures and neural structures I was able place the interbody cage in good alignment and good position. We used C-arm guidance and were able to expand the cage with good fit and fill at the interbody space. Position was confirmed with C-arm guidance. Good hemostasis maintained. There is no evidence of any dural tear or leak. The wound was irrigated and suctioned dry. With the hardware intact, intraoperative C-arm imaging was again taken which showed good alignment and position of the hardware at the appropriate levels. We were then able to measure, contour and place the rods and appropriate hardware bilaterally. I was able to place capcrews, tighten them down, and torque them with the torque screwdriver appropriately. With this intact I was able to place the local autogenous bone graft with additional bone graft enhancer as necessary into the posterior lateral gutters over the decorticated transverse processes and facet joints on the contralateral side. The remainder of the bone graft was placed over the facet joint on the contralateral side after taking down the facet joint capsule. With the bone graft intact, a stable construct, and good decompression at the appropriate levels, we were able to proceed with closure. Good hemostasis was maintained. There is no evidence of dural tear or leak. The fascia was closed for a watertight closure. he subcuticular tissue was closed with absorbable suture. The wound was cleaned and dried and dressed with the appropriate dressing. The drapes were broken down. The patient was gently rolled back onto their hospital bed being careful to maintain their cervical spine and good neutral alignment and position. They were woken up by anesthesia, extubated, and brought to the recovery room in good stable condition. The patient will be admitted to the hospital for appropriate postoperative care, medical management and monitoring. We will continue to follow them closely about the postoperative course.
[2020-06-29] MEDS ORDERED: fentaNYL (PF) 50 MCG/ML 2 ML AMP IVP ONE ×2 (16:55→17:05)
[2020-06-29] MEDS ORDERED: MEPERIDINE 50 MG/ML SYRINGE IVP ONE (18:00)
[2020-06-29] MEDS: HYDROmorphone 1 MG/ML 1 ML SYRINGE IVP PRN (20:53)
[2020-06-29] MEDS: GABAPENTIN 300 MG CAP PO SCH (20:54)
[2020-06-29] MEDS: LISINOPRIL-HCTZ 10-12.5 MG 1 EACH TAB PO SCH (20:54)
[2020-06-29] MEDS: ATORVASTATIN 20 MG TAB PO SCH (20:54)
[2020-06-29] MEDS: SODIUM CHLORIDE 0.9% 1,000 ML IV SCH (20:56)
--- NOTE | 2020-06-29 22:33 | P.CONS ---
History of Present Illness - Reason for Consult Consult date: 06/29/20 - History of Present Illness Patient is a 60-year-old female with a PMH of hypertension, hyperlipidemia, scoliosis, and lumbago who was admitted to the hospital for elective spinal procedures including laminectomy and decompression of L4/L5 and discectomies. The underwent the procedure earlier today with no immediate postoperative complications. Patient was seen on the surgical unit. She reported her pain at the surgical sites to be a 4 out of 10. He notes that she has not yet gotten out of bed or passed flatus. Denied any additional complaints. Denied chest pain, shortness of breath, nausea, vomiting. Denied abdominal pain, diarrhea, fever, chills, or cough. Reports compliance with her medications at home. Review of Systems Pertinent positives and negatives as discussed in HPI, a complete review of systems was performed and all other systems are negative. Past Medical History Past Medical History: Hyperlipidemia, Hypertension, Musculoskeletal Disorder Additional Past Medical History / Comment(s): Scoliosis, Degenerative Joint Disease, Hiatal Hernia, hx Diverticulitis. History of Any Multi-Drug Resistant Organisms: None Reported Past Surgical History: Appendectomy, Back Surgery, Bowel Resection, Section, Cholecystectomy, Joint Replacement, Orthopedic Surgery, Tonsillectomy Additional Past Surgical History / Comment(s): Excison of avulsion fx R patella and patellar tendon repair, bilateral arthroscopic knee(total 5), bilateral knee replacements, 4 back surgeries, right neurectomy chest area. Past Anesthesia/Blood Transfusion Reactions: No Reported Reaction Past Psychological History: No Psychological Hx Reported Smoking Status: Never smoker Past Alcohol Use History: None Reported Past Drug Use History: None Reported - Past Family History Mother Family Medical History: Cancer Additional Family Medical History / Comment(s): . Father Family Medical History: Liver Disease Additional Family Medical History / Comment(s): Cirrhosis of the liver-etoh abu se. Medications and Allergies Home Medications Medication Instructions Recorded Confirmed Type Atorvastatin Calcium [Lipitor] 20 mg PO HS 07/09/18 06/29/20 History Lisinopril-Hctz 10-12.5 mg 1 tab PO HS 07/09/18 06/29/20 History [Zestoretic 10-12.5] Cyclobenzaprine [Flexeril] 10 mg PO TID PRN 06/27/20 06/29/20 History Gabapentin 600 mg PO HS 06/27/20 06/29/20 History HYDROcodone/APAP 5-325MG [[place] 1 tab PO TID PRN 06/27/20 06/29/20 History 5-325] Allergies Allergy/AdvReac Type Severity Reaction Status Date / Time piperacillin sodium AdvReac Itching Verified 06/29/20 11:48 [From Zosyn] tazobactam sodium AdvReac Itching Verified 06/29/20 11:48 [From Zosyn] Physical Exam Vitals: Vital Signs Temp Pulse Resp BP Pulse Ox 06/29/20 19:55 98.3 F 105 H 18 155/89 100 06/29/20 18:44 100 16 130/78 94 L 06/29/20 18:15 99 16 134/79 96 06/29/20 17:45 98 16 142/67 99 06/29/20 17:15 99 16 144/78 100 06/29/20 16:45 94 16 145/68 98 06/29/20 16:34 95 16 146/69 100 06/29/20 16:19 92 16 154/71 100 06/29/20 16:04 85 16 161/77 100 06/29/20 15:49 105 H 16 159/76 99 06/29/20 11:50 97.7 F 115 H 17 148/92 98 Intake and Output 06/29/20 06/29/20 06/29/20 06:59 14:59 22:59 Intake Total 1351 450 Output Total 475 Balance 1351 -25 Intake: IV 1351 450 Output: Urine 375 Estimated Blood Loss 100 Other: Weight 73.5 kg General: non toxic, no distress, appears at stated age, overweight Derm: no unusual rashes/lesions no unusual ecchymoses, warm, dry Head: atraumatic, normocephalic, symmetric Eyes: EOMI, no lid lag, anicteric sclera, pupils equal round reactive to light ENT: Nose and ears atraumatic, no thrush, no pharyngeal erythema Neck: No thyromegaly, no cervical lymphadenopathy, trachea midline, supple Mouth: no lip lesion, mucus membranes moist Cardiovascular: S1S2 reg, no murmur, positive posterior tibial pulse bilateral, no edema, capillary refill less than 2 seconds Lungs: CTA bilateral, no rhonchi, no rales , no accessory muscle use Abdominal: soft, nontender to palpation, no guarding, no appreciable organomegaly, normal bowel sounds Ext: no gross muscle atrophy, muscle strength 5 out of 5 in all 4 extremities grossly, no contractures, dressings on back appear clean and dry Neuro: CN II-XI grossly intact, light touch intact all 4 extremities, finger to nose within normal limits, Psych: Alert, oriented, appropriate affect Assessment and Plan Plan: Hypertension -Continue with home lisinopril 10 and hydrochlorothiazide 12.5 Hyperlipidemia -Continue with home Lipitor 20 mg Scoliosis and spinal degenerative joint disease status post laminectomy and decompression -Defer management including pain control to orthopedic surgery
[2020-06-30] MEDS: HYDROmorphone 1 MG/ML 1 ML SYRINGE IVP PRN ×5 (00:30→19:18)
[2020-06-30] MEDS: CYCLOBENZAPRINE 10 MG TAB PO PRN (00:30)
[2020-06-30] MEDS: SODIUM CHLORIDE 0.9% 1,000 ML IV SCH ×2 (05:42→17:48)
[2020-06-30 06:50] LABS: Basophils % (A) 0 %; Eosinophils # (A) 0.3 k/uL (0-0.7); Eosinophils % (A) 3 %; HCT 36.5 % (34.0-46.0); HGB 12.1 gm/dL (11.4-16.0); Lymphocytes # (A) 1.1 k/uL (1.0-4.8); Lymphocytes % (A) 13 %; MCH 29.4 pg (25.0-35.0); MCHC 33.2 g/dL (31.0-37.0); MCV 88.7 fL (80.0-100.0); Mean Platelet Volume 7.7; Monocytes # (A) 0.4 k/uL (0-1.0); Monocytes % (A) 5 %; Neutrophils # (A) 6.5 k/uL (1.3-7.7); Neutrophils % (A) 78 %; Platelet Count 272 k/uL (150-450); RBC 4.12 m/uL (3.80-5.40); RDW 12.1 % (11.5-15.5); WBC 8.3 k/uL (3.8-10.6)
[2020-06-30] MEDS: SENNOSIDES-DOCUSATE SODIUM 1 EACH TAB PO SCH (09:00)
--- NOTE | 2020-06-30 09:14 | P.PN ---
Progress Note - Text Progress Note Date: 06/30/20 Postoperative day #1 Patient is seen and examined today at bedside. The patient has some pain around the surgical site as expected. Pain is being controlled with medication. She has significant itching with [place] and would like to try Ultram. She feels her legs are doing well. Pain is primarily focused on her lower back and toward her hips bilaterally Physical Exam Afebrile with stable vital signs Abdomen is soft nontender. Chest has good excursion deep and space expiration The incision site is clean dry and intact. No erythema there is no purulence. Extremities have not had neurologic change from prior to surgery. She has sustained dorsal flexion plantarflexion and EHL intact Calves and thighs were soft nontender without evidence of DVT. Assessment/Plan Postoperative day #1 status post revision fusion at L4 5 for pseudoarthrosis at L4 5 history of long segment thoracic or lumbar scoliosis surgery Patient is progressing as expected from the surgery. We will continue to increase the patient's mobilization with therapy. We will get her up out of bed today Will discontinue her Rivera and encourage her incentive spirometry She is changing over Ultram and hopefully that'll give her some relief without the itching We will continue pain control with oral or IV medications. We'll continue to follow patient closely.
[2020-06-30] MEDS: LACTATED RINGERS 1,000 ML IV SCH (09:45)
[2020-06-30 10:18] LABS: African American GFR (CKD) 113.2 (60.0-200.0); Anion Gap 6.4 mmol/L (4.00-12.00); BUN/Creat Ratio 23.33 Ratio (12.00-20.00); Calcium 8.8 mg/dL (8.7-10.3); Carbon Dioxide 27.6 mmol/L (21.6-31.8); Non-African American GFR(CKD) 97.7 (60.0-200.0); Potassium 3.9 mmol/L (3.5-5.5)
[2020-06-30] MEDS: traMADol 50 MG TAB PO PRN ×3 (12:04→23:12)
[2020-06-30] MEDS: GABAPENTIN 300 MG CAP PO SCH (19:23)
[2020-06-30] MEDS: LISINOPRIL-HCTZ 10-12.5 MG 1 EACH TAB PO SCH (19:24)
[2020-06-30] MEDS: ATORVASTATIN 20 MG TAB PO SCH (19:24)
--- NOTE | 2020-06-30 23:20 | P.PN ---
Progress Note - Text Progress Note Date: 06/30/20 presenting complaint: Lumbar surgery Interval history: patient underwent lumbar surgery on June 29. Today-laying in bed. Pain is present. Rivera catheter taken out. No nausea vomiting. Did tolerate a light breakfast. Review of systems: Was done for constitutional, cardiovascular, GI, pulmonary. relevant finding as above Active Medications Hydrocodone Bitart/Acetaminophen (Hydrocodone/Apap 5-325mg 1 Each Tab) 1 each PO Q4HR PRN PRN Reason: Moderate Pain Hydrocodone Bitart/Acetaminophen (Hydrocodone/Apap 5-325mg 1 Each Tab) 2 each PO Q4HR PRN PRN Reason: Moderate Pain Hydrocodone Bitart/Acetaminophen (Hydrocodone/Apap 5-325mg 1 Each Tab) 1 each PO TID PRN PRN Reason: Pain Atorvastatin Calcium (Atorvastatin 20 Mg Tab) 20 mg PO HS [facility] Last Admin: 06/30/20 19:24 Dose: 20 mg Documented by: Benzocaine/Menthol (Benzocaine/Menthol Lozeng 1 Each Lozenge) 1 each MUCOUS MEM Q4HR PRN PRN Reason: Sore Throat Cyclobenzaprine HCl (Cyclobenzaprine 10 Mg Tab) 10 mg PO TID PRN PRN Reason: Pain Last Admin: 06/30/20 00:30 Dose: 10 mg Documented by: Gabapentin (Gabapentin 300 Mg Cap) 600 mg PO [facility] Last Admin: 06/30/20 19:23 Dose: 600 mg Documented by: Lisinopril/HCTZ (Lisinopril-Hctz 10-12.5 Mg 1 Each Tab) 1 each PO [facility] Last Admin: 06/30/20 19:24 Dose: 1 each Documented by: Hydromorphone HCl (Hydromorphone 0.5 Mg/0.5 Ml Syringe) 0.5 mg IVP Q4HR PRN PRN Reason: Pain Hydromorphone HCl (Hydromorphone 1 Mg/Ml 1 Ml Syringe) 1 mg IVP Q4HR PRN PRN Reason: Pain Last Admin: 06/30/20 19:18 Dose: 1 mg Documented by: Lactated Ringer's (Lactated Ringers) 1,000 mls @ 20 mls/hr IV .Q24H [facility] Last Admin: 06/30/20 09:45 Dose: Not Given Documented by: Sodium Chloride (Saline 0.9%) 1,000 mls @ 75 mls/hr IV .[id number] [facility] Last Admin: 06/30/20 17:48 Dose: Not Given Documented by: Lidocaine HCl (Lidocaine 1% (10mg/Ml) For Iv Start) 0.1 ml INTRADERMA PER PROTOCOL PRN PRN Reason: IV Start Last Admin: 06/29/20 12:14 Dose: 0.1 ml Documented by: Magnesium Hydroxide (Magnesium Hydroxide 2,400 Mg/10 Ml Cup) 2,400 mg PO DAILY PRN PRN Reason: Constipation Ondansetron HCl (Ondansetron 4 Mg/2 Ml Vial) 4 mg IVP Q6HR PRN PRN Reason: Nausea Senna/Docusate Sodium (Sennosides-Docusate Sodium 1 Each Tab) 1 each PO DAILY [facility] Last Admin: 06/30/20 09:00 Dose: 1 each Documented by: Tramadol HCl (Tramadol 50 Mg Tab) 50 mg PO QID PRN PRN Reason: Pain Last Admin: 06/30/20 23:12 Dose: 50 mg Documented by: On examination: VITAL SIGNS: [100.8, 118, 14, 11 4/67, 95% room air] GENERAL APPEARANCE: laying in bed, slightly uncomfortable HEENT: Normal external appearance of nose and ear. Oral cavity normal EYES: Pupils equal. Conjunctiva normal. NECK: JVD not raised. Mass not palpable. RESPIRATORY: Respiratory effort normal. Lungs clear to auscultation. CARDIOVASCULAR: First and second sounds normal. No edema. ABDOMEN: Soft. Liver and spleen not palpable. No tenderness. No mass palpable. PSYCHIATRY: Alert and oriented x3. Mood and affect normal. INVESTIGATIONS, reviewed in the clinical context: white count 8.3 hemoglobin 12.1 platelets 272 potassium 3.9 creatinine 0.6 Assessment: -L4-L5 laminectomy decompression -Hyperlipidemia -Essential hypertension -Hiatal hernia- -Low-grade fever Plan: we'll keep a close eye patient's fever. If persist later further workup. Could simply be reactive from surgery. Repeat a CBC in the morning. Continue IV fluids. Pain control in place. Discussed with the patient. Thank you Dr. Menjivar
[2020-07-01] MEDS: CYCLOBENZAPRINE 10 MG TAB PO PRN ×2 (05:31→13:46)
[2020-07-01] MEDS ORDERED: ACETAMINOPHEN TAB 325 MG TAB PO PRN (06:12)
[2020-07-01] MEDS: HYDROmorphone 1 MG/ML 1 ML SYRINGE IVP PRN ×3 (07:21→19:54)
[2020-07-01] MEDS: SENNOSIDES-DOCUSATE SODIUM 1 EACH TAB PO SCH (07:26)
[2020-07-01 08:06] LABS: Basophils % (A) 0 %; Eosinophils # (A) 0.3 k/uL (0-0.7); Eosinophils % (A) 3 %; HCT 35.3 % (34.0-46.0); Lymphocytes # (A) 1.4 k/uL (1.0-4.8); Lymphocytes % (A) 13 %; MCV 88.4 fL (80.0-100.0); Mean Platelet Volume 7.7; Monocytes # (A) 0.6 k/uL (0-1.0); Monocytes % (A) 6 %; Neutrophils # (A) 8.3 k/uL (1.3-7.7); Neutrophils % (A) 76 %; Platelet Count 231 k/uL (150-450); RDW 11.9 % (11.5-15.5); WBC 10.9 k/uL (3.8-10.6)
--- NOTE | 2020-07-01 08:26 | XR ---
EXAMINATION TYPE: XR chest 1V portable DATE OF EXAM: 07/01/2020 COMPARISON: Prior chest x-ray 04/23/2018 HISTORY: Fever TECHNIQUE: Single frontal view of the chest is obtained. FINDINGS: There is no focal air space opacity, pleural effusion, or pneumothorax seen. The cardiac silhouette size is within normal limits. The osseous structures are stable, there is an underlying scoliosis. Surgical clips present in the upper abdomen. Hiatal hernia is again noted. IMPRESSION: No acute process.
--- NOTE | 2020-07-01 08:48 | P.PN ---
Progress Note - Text Progress Note Date: 07/01/20 Orthopedic Spine: History of present illness: Patient is a pleasant 60-year-old female who is seen and examined at the bedside following posterior lateral decompression and fusion performed Saturday. Patient states they are doing well postsurgically. She feels she has made some good improvements as compared yesterday. She has been able to ambulate with physical therapy. She is using a walker for assistance. She states she has a walker. She does continue to receive IV Dilaudid. She was changed to oral tramadol due to itching with [place]. She is no longer experiencing any significant itching. She's not currently complaining of any lower extremity weakness or radiculopathy bilaterally. She does continue to have some pain in her surgical sites. Currently does not complain of nausea, vomiting, fever, or chills. Patient states pain has been adequately controlled. Patient is eating and voiding freely without difficulty. Physical Exam Lumbar Fusion: Status post surgical day number 2 Patient is awake, alert, and oriented 3 Vital signs stable Good chest excursion with deep inspiration and expiration No significant pain with palpation over the surgical sites Dorsiflexion, plantarflexion, and extensor hallucis longus positive sustained bilaterally No signs or symptoms of DVT; no calf pain; pneumatic cuffs intact bilateral lower extremities Dressings over the surgical sites remain clean, dry, and intact; no erythema, purulence, or signs of infection Some bruising along the surgical sites Neurovascularly intact bilaterally lower extremities Assessment: Status post L4-5 minimally invasive posterior lateral decompression and fusion with transforaminal lumbar interbody fusion Low back pain L4-5 pseudoarthrosis Scoliosis History of previous thoracolumbar fusion Lumbar degenerative disc disease Lower extremity radiculopathy Hypertension Hyperlipidemia Plan: 1. Ambulate as tolerated; work with Physical Therapy to increase mobilization; patient may continue use walker as needed to aid in ambulation 2. Continue pain control with IV and oral medications; we will work to wean off of IV Dilaudid in anticipation for discharge home as early as tomorrow, 07/02/20 MAPS has been reviewed today, 07/01/2020, with an Overall Overdose Risk Score of 240. An "Opiod Start Talking" Form has been signed and placed in the patient's chart. A prescription has been written for Ultram 50 mg 1-2 tabs every 6 hours as needed for pain, dispensed #56. Patient should avoid anti-inflammatory medication of the next 6 weeks postoperatively 3. Dressing to remain intact with Optifoam; patient may shower with dressing is intact 4. Medical management can continue to manage patient for patient's other medical diagnoses 5. We will continue to follow the patient closely; the patient continues to improve, we will plan for discharge home as early as tomorrow, 07/02/2020 6. Patient can follow-up with Edward Allred PA-C or Dr. Chetan Menjivar at [facility] in 2-3 weeks following discharge
[2020-07-01] MEDS: SODIUM CHLORIDE 0.9% 1,000 ML IV SCH ×2 (13:59→22:23)
--- NOTE | 2020-07-01 15:16 | CONS ---
CONSULTATION PULMONARY/CRITICAL CARE CONSULTATION: DATE OF SERVICE: 07/01/2020 HISTORY OF PRESENT ILLNESS: This is a 60-year-old female who had a L4, L5 laminectomy and decompression surgery, done by Dr. Menjivar. The surgery was done June 29. We were asked to see the patient this morning because of postoperative fever. The patient denies any shortness of breath, cough, wheezing, or phlegm production. Likewise, she denies any genitourinary complaints such as pain on urination, dysuria, frequency, foul-smelling urine, cloudy urine or blood in her urine. Also, she denies any nausea, vomiting or diarrhea. She really has no other complaints. She is feeling fine. I told her that the postoperative fever could just relate to postoperative atelectasis. I asked her to take deep breaths and use our incentive spirometer. Other than that, the patient is doing reasonably well. PAST MEDICAL HISTORY: Reviewed. She has a history of hyperlipidemia, hypertension, scoliosis, degenerative joint disease, hiatal hernia, and diverticular disease. SURGICAL HISTORY: Includes appendectomy, back surgery, bowel resection, , cholecystectomy, joint replacement, tonsillectomy, patellar tendon repair, bilateral knee arthroscopy, bilateral knee replacements, and multiple back surgeries. SOCIAL HISTORY: Negative for tobacco use. Denies any alcohol or illicit drug use. FAMILY HISTORY: Positive for mother with cancer and a father with liver disease from cirrhosis and alcohol abuse. HOME MEDICATIONS: Include Lipitor, lisinopril/hydrochlorothiazide, Flexeril, gabapentin and [place]. ALLERGIES: ALLERGIES ARE ZOSYN. REVIEW OF SYSTEMS: CONSTITUTIONAL: Fever, although the patient does not have any sensation of fever or chills. NEUROLOGIC negative. HEENT negative. CARDIOVASCULAR negative. PULMONARY negative. GI negative. negative. RHEUMATOLOGIC negative. IMMUNOLOGIC negative. ENDOCRINOLOGIC negative. PHYSICAL EXAMINATION: Vital signs are reviewed. Temperature is 99.5, heart rate 118, respiratory rate 20, blood pressure 103/66 mean 78 room-air saturation 92%. T-max was 100.8, which occurred on June 30. GENERAL: Appears in no acute distress. Oriented x3. HEENT examination is grossly unremarkable. NECK: Supple. Full range of motion. No adenopathy. Neck veins are flat. CARDIOVASCULAR: Examination reveals regular rhythm and rate. Heart rate 100 beats per minute. S1, S2 normal. No S3, S4, or murmur. LUNGS: Reveal clear breath sounds. No wheezes, rhonchi, or crackles. ABDOMEN: Soft bowel sounds are heard. EXTREMITIES are intact. No cyanosis, clubbing, or edema. SKIN: Without rash. NEUROLOGIC: Examination is brief but nonfocal. LABS: Reviewed. White count 10.9, hemoglobin 12, hematocrit 35.3, platelet count 231,000. Sodium 137, potassium 3.9, chloride 103, CO2 27.6, anion gap is 6.4, BUN and creatinine were 14 and 0.6. Microbiology is negative. Chest x-ray today shows no acute process. Medications are reviewed. Her medications all seem appropriate. ASSESSMENT: 1. Postoperative fever, of unclear etiology. May relate to atelectasis. 2. Postoperative day #2 status post laminectomy and decompression, L4, L5. 3. History of hyperlipidemia. 4. History of hypertension. 5. History of scoliosis. 6. Degenerative joint disease. 7. History of hiatal hernia. 8. Diverticular disease. 9. Multiple previous back surgeries and chronic back pain. PLAN: The patient is clinically well. No antibiotics are needed. We will continue to follow and monitor. The patient should take deep breaths, cough, clear secretions. She should also use the incentive spirometer q.1 hour. No additional recommendations are made. We will follow. MMDIMITRISL / CODYN: [id number] /
[2020-07-01] MEDS: LACTATED RINGERS 1,000 ML IV SCH (15:37)
[2020-07-01] MEDS: traMADol 50 MG TAB PO PRN (17:19)
--- NOTE | 2020-07-01 20:06 | P.PN ---
Progress Note - Text Progress Note Date: 07/01/20 presenting complaint: Lumbar surgery Interval history: patient underwent lumbar surgery on June 29. Today-pain better controlled. Up to the bathroom. No nausea vomiting. Has been up in a chair. Denies any urinary or respiratory symptoms. Review of systems: Was done for constitutional, cardiovascular, GI, pulmonary. relevant finding as above Active Medications Acetaminophen (Acetaminophen Tab 325 Mg Tab) 650 mg PO Q6HR PRN PRN Reason: Fever and/ or Pain Last Admin: 07/01/20 07:22 Dose: 650 mg Documented by: Hydrocodone Bitart/Acetaminophen (Hydrocodone/Apap 5-325mg 1 Each Tab) 1 each PO Q4HR PRN PRN Reason: Moderate Pain Hydrocodone Bitart/Acetaminophen (Hydrocodone/Apap 5-325mg 1 Each Tab) 2 each PO Q4HR PRN PRN Reason: Moderate Pain Hydrocodone Bitart/Acetaminophen (Hydrocodone/Apap 5-325mg 1 Each Tab) 1 each PO TID PRN PRN Reason: Pain Atorvastatin Calcium (Atorvastatin 20 Mg Tab) [address] [facility] Last Admin: 06/30/20 19:24 Dose: 20 mg Documented by: Benzocaine/Menthol (Benzocaine/Menthol Lozeng 1 Each Lozenge) 1 each MUCOUS MEM Q4HR PRN PRN Reason: Sore Throat Cyclobenzaprine HCl (Cyclobenzaprine 10 Mg Tab) 10 mg PO TID PRN PRN Reason: Pain Last Admin: 07/01/20 13:46 Dose: 10 mg Documented by: Gabapentin (Gabapentin 300 Mg Cap) [address] [facility] Last Admin: 06/30/20 19:23 Dose: 600 mg Documented by: Lisinopril/HCTZ (Lisinopril-Hctz 10-12.5 Mg 1 Each Tab) 1 each PO HS [facility] Last Admin: 06/30/20 19:24 Dose: 1 each Documented by: Hydromorphone HCl (Hydromorphone 0.5 Mg/0.5 Ml Syringe) 0.5 mg IVP Q4HR PRN PRN Reason: Pain Hydromorphone HCl (Hydromorphone 1 Mg/Ml 1 Ml Syringe) 1 mg IVP Q4HR PRN PRN Reason: Pain Last Admin: 07/01/20 19:54 Dose: 1 mg Documented by: Lactated Ringer's (Lactated Ringers) 1,000 mls @ 20 mls/hr IV .Q24H [facility] Last Admin: 07/01/20 15:37 Dose: Not Given Documented by: Sodium Chloride (Saline 0.9%) 1,000 mls @ 75 mls/hr IV .[id number] [facility] Last Admin: 07/01/20 13:59 Dose: Not Given Documented by: Lidocaine HCl (Lidocaine 1% (10mg/Ml) For Iv Start) 0.1 ml INTRADERMA PER PROTOCOL PRN PRN Reason: IV Start Last Admin: 06/29/20 12:14 Dose: 0.1 ml Documented by: Magnesium Hydroxide (Magnesium Hydroxide 2,400 Mg/10 Ml Cup) 2,400 mg PO DAILY PRN PRN Reason: Constipation Ondansetron HCl (Ondansetron 4 Mg/2 Ml Vial) 4 mg IVP Q6HR PRN PRN Reason: Nausea Senna/Docusate Sodium (Sennosides-Docusate Sodium 1 Each Tab) 1 each PO DAILY [facility] Last Admin: 07/01/20 07:26 Dose: 1 each Documented by: Tramadol HCl (Tramadol 50 Mg Tab) 50 mg PO QID PRN PRN Reason: Pain Last Admin: 07/01/20 17:19 Dose: 50 mg Documented by: On examination: VITAL SIGNS: 99.5, 118, 20, 103/66, 92% room air GENERAL APPEARANCE: laying in bed, uncomfortable HEENT: Normal external appearance of nose and ear. Oral cavity normal EYES: Pupils equal. Conjunctiva normal. NECK: JVD not raised. Mass not palpable. RESPIRATORY: Respiratory effort normal. Lungs clear to auscultation. CARDIOVASCULAR: First and second sounds normal. No edema. ABDOMEN: Soft. Liver and spleen not palpable. No tenderness. No mass palpable. PSYCHIATRY: Alert and oriented x3. Mood and affect normal. INVESTIGATIONS, reviewed in the clinical context: White count 10.9 Previous testing white count 8.3 hemoglobin 12.1 platelets 272 potassium 3.9 creatinine 0.6 Assessment: -L4-L5 laminectomy decompression -Hyperlipidemia -Essential hypertension -Hiatal hernia- -Low-grade fever Plan: We'll send off a urine culture. Other medication treatment plan to continue. Clinically looks better. Repeat CBC Thank you Dr. Menjivar
[2020-07-01] MEDS: LISINOPRIL-HCTZ 10-12.5 MG 1 EACH TAB PO SCH (21:28)
[2020-07-01] MEDS: GABAPENTIN 300 MG CAP PO SCH (21:28)
[2020-07-01] MEDS: ATORVASTATIN 20 MG TAB PO SCH (21:28)
[2020-07-02] MEDS: HYDROmorphone 1 MG/ML 1 ML SYRINGE IVP PRN ×4 (01:23→23:38)
[2020-07-02 01:44] LABS: Appearance,Urine Clear (Clear); Bacteria,Urine Rare /hpf; Bilirubin,Urine Negative (Negative); Blood,Urine Negative (Negative); Color,Urine Yellow; Glucose,Urine (UA) 1+ (Negative); Hyaline Casts,Urine 3 /lpf (0-2); Ketones,Urine Negative (Negative); Leukocyte Esterase,Urine Trace (Negative); Mucus,Urine Rare /hpf; Nitrite,Urine Negative (Negative); PH, Urine 5.5 (5.0-8.0); Protein,Urine Trace (Negative); RBC,Urine 1 /hpf (0-5); Specific Gravity,Urine 1.013 (1.001-1.035); Squamous Epithelial Cell,Urine 2 /hpf (0-4); Urobilinogen,Urine <2.0 mg/dL (<2.0); WBC,Urine 14 /hpf (0-5)
[2020-07-02 06:39] LABS: Basophils # (A) 0.1 k/uL (0-0.2); Basophils % (A) 1 %; Eosinophils # (A) 0.5 k/uL (0-0.7); Eosinophils % (A) 5 %; HCT 34.2 % (34.0-46.0); HGB 11.4 gm/dL (11.4-16.0); Lymphocytes # (A) 2.3 k/uL (1.0-4.8); Lymphocytes % (A) 21 %; MCH 28.9 pg (25.0-35.0); MCHC 33.3 g/dL (31.0-37.0); MCV 86.9 fL (80.0-100.0); Mean Platelet Volume 8.5; Monocytes # (A) 0.7 k/uL (0-1.0); Monocytes % (A) 6 %; Neutrophils # (A) 7.3 k/uL (1.3-7.7); Neutrophils % (A) 66 %; Platelet Count 287 k/uL (150-450); RBC 3.94 m/uL (3.80-5.40); RDW 12.2 % (11.5-15.5)
[2020-07-02] MEDS: SENNOSIDES-DOCUSATE SODIUM 1 EACH TAB PO SCH (08:45)
[2020-07-02] MEDS ORDERED: oxyCODONE-APAP 5-325MG 1 EACH TAB PO PRN (10:33)
--- NOTE | 2020-07-02 10:52 | P.PN ---
Subjective Progress Note Date: 07/02/20 Principal diagnosis: S/P L4-5 decompression and fusion Patient is a pleasant 60-year-old female who is seen and examined at the bedside this morning. She POD #2 from posterior lateral decompression and fusion. She continues to have pain in the low back at surgical site as expected. She has been mainly getting IV dilaudid for pain control. She has been out of bed. She's not currently complaining of any lower extremity weakness or radiculopathy bilaterally. She denies new numbness, calf pain, nausea, chest pain, vomiting, fever, or chills. Patient is eating and voiding freely without difficulty. Objective - Vital Signs Vital signs: Vital Signs Temp 97.7 F 07/02/20 07:00 Pulse 109 H 07/02/20 07:00 Resp 18 07/02/20 02:29 BP 100/68 07/02/20 07:00 Pulse Ox 94 L 07/02/20 07:00 Intake & Output 07/01/20 07/02/20 07/02/20 18:59 06:59 18:59 Intake Total 200 Balance 200 Intake: Oral 200 Other: Voiding Method Toilet Toilet # Voids 2 - Exam Inspection of lumbar spine shows benign surgical wounds with dressings intact and no signs of infection, drainage or active bleeding. L2-S1 dermatomes and myotomes appear to be grossly intact throughout bilateral lower extremities. calves are SNT. 2+ DP pulses and less than 2 sec cap refill is present bilaterally - Constitutional General appearance: Present: no acute distress - Labs CBC & Chem 7: 07/02/20 05:54 06/30/20 06:22 Labs: Abnormal Lab Results - Last 24 Hours (Table) 07/02/20 07/02/20 Range/Units 01:00 05:54 WBC 11.0 H (3.8-10.6) k/uL Urine Protein Trace H (Negative) Urine Glucose (UA) 1+ H (Negative) Ur Leukocyte Esterase Trace H (Negative) Urine WBC 14 H (0-5) /hpf Urine WBC Clumps Rare H (None) /hpf Urine Bacteria Rare H (None) /hpf Hyaline Casts 3 H (0-2) /lpf Urine Mucus Rare H (None) /hpf Microbiology - Last 24 Hours (Table) 07/02/20 01:00 Urine Culture - Preliminary Urine,Voided 07/01/20 07:24 Blood Culture - Preliminary Blood No Growth after 24 hours Assessment and Plan (1) S/P lumbar fusion Narrative/Plan: She will continue with routine post op orthopedic spine protocol including pain management, PT, DVT prophylaxis, and medical management. Due to complaints of itching with [place], Percocet 5mg and valium 2mg was added to try to achieve better long lasting pain control and spasm control today. Will reassess tomorrow and may be able to D/C saira home if pain better controlled and medially stable. Current Visit: Yes Status: Acute Priority: Medium Code(s): Z98.1 - ARTHRODESIS STATUS SNOMED Code(s): [id number] Time with Patient: Less than 30
[2020-07-02] MEDS: oxyCODONE-APAP 5-325MG 1 EACH TAB PO PRN ×3 (10:54→22:11)
[2020-07-02] MEDS: SODIUM CHLORIDE 0.9% 1,000 ML IV SCH (13:27)
[2020-07-02] MEDS: LACTATED RINGERS 1,000 ML IV SCH (16:29)
--- NOTE | 2020-07-02 16:59 | P.PN ---
Subjective Progress Note Date: 07/02/20 Principal diagnosis: Postoperative fever of unclear etiology Patient is seen today 07/02/2020 in follow-up on the regular medical floor. She is status post laminectomy and decompression surgery of L4-L5 done on 06/29/2020. She developed a postoperative fever and we are consulted for the same. She denied any worsening shortness of breath, cough or congestion. Chest x-ray did reveal some areas of atelectasis. She was encouraged increased use of the incentive spirometer. Today she is doing well. She is sitting up in a chair at the bedside. Awake and alert in no acute distress. Maintaining good O2 saturations in the 90s on room air. She's been afebrile. Blood and urine cultures pending. White count 11.0. Hemoglobin 11.4. Pro-calcitonin 0.31. Currently on ceftriaxone. Objective - Vital Signs Vital signs: Vital Signs Temp 97.7 F 07/02/20 14:49 Pulse 95 07/02/20 14:49 Resp 18 07/02/20 02:29 BP 102/66 07/02/20 14:49 Pulse Ox 94 L 07/02/20 07:00 Intake & Output 07/01/20 07/02/20 07/02/20 18:59 06:59 18:59 Intake Total 200 Balance 200 Intake: Oral 200 Other: Voiding Method Toilet Toilet # Voids 2 3 - Exam GENERAL EXAM: Alert, active, pleasant 60-year-old female patient, on room air comfortable in no apparent distress. HEAD: Normocephalic. EYES: Normal reaction of pupils, equal size. NOSE: Clear with pink turbinates. THROAT: No erythema or exudates. NECK: No masses, no JVD. CHEST: No chest wall deformity. LUNGS: Equal air entry with no crackles, wheeze, rhonchi or dullness. CVS: S1 and S2 normal with no audible murmur, regular rhythm. ABDOMEN: No hepatosplenomegaly, normal bowel sounds, no guarding or rigidity. SPINE: Dressing dry and intact. No scoliosis or deformity SKIN: No rashes CENTRAL NERVOUS SYSTEM: No focal deficits, tone is normal in all 4 extremities. EXTREMITIES: There is no peripheral edema. No clubbing, no cyanosis. Peripheral pulses are intact. - Labs CBC & Chem 7: 07/02/20 05:54 06/30/20 06:22 Labs: Abnormal Lab Results - Last 24 Hours (Table) 07/02/20 07/02/20 07/02/20 Range/Units 01:00 05:54 05:54 WBC 11.0 H (3.8-10.6) k/uL Procalcitonin 0.31 H (0.02-0.09) ng/mL Urine Protein Trace H (Negative) Urine Glucose (UA) 1+ H (Negative) Ur Leukocyte Esterase Trace H (Negative) Urine WBC 14 H (0-5) /hpf Urine WBC Clumps Rare H (None) /hpf Urine Bacteria Rare H (None) /hpf Hyaline Casts 3 H (0-2) /lpf Urine Mucus Rare H (None) /hpf Microbiology - Last 24 Hours (Table) 07/02/20 01:00 Urine Culture - Preliminary Urine,Voided 07/01/20 07:24 Blood Culture - Preliminary Blood No Growth after 24 hours Assessment and Plan Assessment: 1 Status post laminectomy and decompression of L4-L5, postoperative day #3 2 Postoperative fever of unclear etiology, suspect from possible atelectasis 3 Hyperlipidemia 4 Hypertension 5 History of scoliosis. 6 Degenerative joint disease 7 Hiatal hernia 8 Diverticular disease 9 Multiple previous back surgeries and chronic back pain Plan: The patient was seen and evaluated by Dr. Ferrell She is working well with the incentive spirometer No fever in the past 24 hours We will see her as needed I, the cosigning physician, performed a history & physical examination of the patient. Lungs sounds are clear. Maintaining good O2 saturations in the 90s on room air. I discussed the assessment and plan of care with my nurse practitioner, Riana Roldan. I attest to the above note as dictated by her.
--- NOTE | 2020-07-02 19:39 | P.PN ---
Progress Note - Text Progress Note Date: 07/02/20 presenting complaint: Lumbar surgery Interval history: patient underwent lumbar surgery on June 29. Today-pain at the operative site. Has been out of bed. It started some diet. Has some urinary frequency. No fever. Incision dressing looking well per nurse. Review of systems: Was done for constitutional, cardiovascular, GI, pulmonary. relevant finding as above Active Medications Acetaminophen (Acetaminophen Tab 325 Mg Tab) 650 mg PO Q6HR PRN PRN Reason: Fever and/ or Pain Last Admin: 07/01/20 07:22 Dose: 650 mg Documented by: Atorvastatin Calcium (Atorvastatin 20 Mg Tab) 20 mg PO HS [facility] Last Admin: 07/01/20 21:28 Dose: 20 mg Documented by: Benzocaine/Menthol (Benzocaine/Menthol Lozeng 1 Each Lozenge) 1 each MUCOUS MEM Q4HR PRN PRN Reason: Sore Throat Cyclobenzaprine HCl (Cyclobenzaprine 10 Mg Tab) 10 mg PO TID PRN PRN Reason: Pain Last Admin: 07/01/20 13:46 Dose: 10 mg Documented by: Diazepam (Diazepam 2 Mg Tab) 2 mg PO TID PRN PRN Reason: Spasms Gabapentin (Gabapentin 300 Mg Cap) 600 mg PO [facility] Last Admin: 07/01/20 21:28 Dose: 600 mg Documented by: Lisinopril/HCTZ (Lisinopril-Hctz 10-12.5 Mg 1 Each Tab) 1 each PO HS [facility] Last Admin: 07/01/20 21:28 Dose: 1 each Documented by: Hydromorphone HCl (Hydromorphone 0.5 Mg/0.5 Ml Syringe) 0.5 mg IVP Q4HR PRN PRN Reason: Pain Hydromorphone HCl (Hydromorphone 1 Mg/Ml 1 Ml Syringe) 1 mg IVP Q4HR PRN PRN Reason: Pain Last Admin: 07/02/20 08:45 Dose: 1 mg Documented by: Lactated Ringer's (Lactated Ringers) 1,000 mls @ 20 mls/hr IV .Q24H [facility] Last Admin: 07/02/20 16:29 Dose: Not Given Documented by: Sodium Chloride (Saline 0.9%) 1,000 mls @ 75 mls/hr IV .[id number] [facility] Last Admin: 07/02/20 13:27 Dose: 75 mls/hr Documented by: Cefazolin Sodium 2 gm/ Sodium (Chloride) 50 mls @ 100 mls/hr IVPB Q8H [facility] Last Admin: 07/02/20 13:26 Dose: 100 mls/hr Documented by: Lidocaine HCl (Lidocaine 1% (10mg/Ml) For Iv Start) 0.1 ml INTRADERMA PER PROTOCOL PRN PRN Reason: IV Start Last Admin: 06/29/20 12:14 Dose: 0.1 ml Documented by: Magnesium Hydroxide (Magnesium Hydroxide 2,400 Mg/10 Ml Cup) 2,400 mg PO DAILY PRN PRN Reason: Constipation Ondansetron HCl (Ondansetron 4 Mg/2 Ml Vial) 4 mg IVP Q6HR PRN PRN Reason: Nausea Oxycodone/Acetaminophen (Oxycodone-Apap 5-325mg 1 Each Tab) 1 each PO Q4HR PRN PRN Reason: Pain Scale 1 to 5 Oxycodone/Acetaminophen (Oxycodone-Apap 5-325mg 1 Each Tab) 2 each PO Q6HR PRN PRN Reason: Pain Scale 6 to 10 Last Admin: 07/02/20 16:26 Dose: 2 each Documented by: Senna/Docusate Sodium (Sennosides-Docusate Sodium 1 Each Tab) 1 each PO DAILY [facility] Last Admin: 07/02/20 08:45 Dose: 1 each Documented by: Tramadol HCl (Tramadol 50 Mg Tab) 50 mg PO QID PRN PRN Reason: Pain Last Admin: 07/01/20 17:19 Dose: 50 mg Documented by: On examination: VITAL SIGNS: 97.7, 95, 16, 102/66, 99% room air GENERAL APPEARANCE: laying in bed, awake HEENT: Normal external appearance of nose and ear. Oral cavity normal EYES: Pupils equal. Conjunctiva normal. NECK: JVD not raised. Mass not palpable. RESPIRATORY: Respiratory effort normal. Lungs clear to auscultation. CARDIOVASCULAR: First and second sounds normal. No edema. ABDOMEN: Soft. Liver and spleen not palpable. No tenderness. No mass palpable. PSYCHIATRY: Alert and oriented x3. Mood and affect normal. INVESTIGATIONS, reviewed in the clinical context: White count 11 hemoglobin 11.4 UA positive Previous testing white count 8.3 hemoglobin 12.1 platelets 272 potassium 3.9 creatinine 0.6 Assessment: -L4-L5 laminectomy decompression -Hyperlipidemia -Essential hypertension -Hiatal hernia- -acute UTI with cystitis. Plan: Scheduled patient. Put out patient on IV Ancef. Other medications to continue. Thank you Dr. Menjivar
[2020-07-02] MEDS: GABAPENTIN 300 MG CAP PO SCH (20:13)
[2020-07-02] MEDS: ATORVASTATIN 20 MG TAB PO SCH (20:13)
[2020-07-02] MEDS: LISINOPRIL-HCTZ 10-12.5 MG 1 EACH TAB PO SCH (20:13)
[2020-07-02] MEDS: diazePAM 2 MG TAB PO PRN (23:39)
[2020-07-03] MEDS: SODIUM CHLORIDE 0.9% 1,000 ML IV SCH ×2 (00:09→12:52)
[2020-07-03] MEDS: oxyCODONE-APAP 5-325MG 1 EACH TAB PO PRN ×4 (04:35→22:51)
[2020-07-03] MEDS: SENNOSIDES-DOCUSATE SODIUM 1 EACH TAB PO SCH (08:39)
[2020-07-03] MEDS: diazePAM 2 MG TAB PO PRN (08:39)
--- NOTE | 2020-07-03 11:20 | P.PN ---
Subjective Progress Note Date: 07/03/20 Principal diagnosis: S/P L4-5 decompression and fusion Patient is a pleasant 60-year-old female who is seen and examined at the bedside this morning. She POD #3 from posterior lateral decompression and fusion at L4- 5. Her pain overall and in the low back at surgical site is improved today. She has been out of bed. She's not currently complaining of any lower extremity weakness or radiculopathy bilaterally. She does have some intermittent anterior thigh pain. She denies new numbness, calf pain, nausea, chest pain, vomiting, fever, or chills. Patient is eating and voiding freely without difficulty. Objective - Vital Signs Vital signs: Vital Signs Temp 98 F 07/03/20 07:00 Pulse 109 H 07/03/20 07:00 Resp 20 07/03/20 01:30 BP 100/64 07/03/20 07:00 Pulse Ox 98 07/03/20 07:00 Intake & Output 07/02/20 07/03/20 07/03/20 18:59 06:59 18:59 Intake Total 180 Balance 180 Intake: Intake, IV Titration 180 Amount Lactated Ringers 1,000 ml 80 @ 20 mls/hr IV .Q24H [facility] Rx#:[id number] ceFAZolin 2 gm In Sodium 100 Chloride 0.9% 50 ml @ 100 mls/hr IVPB Q8H [facility] Rx#: [id number] Other: Voiding Method Toilet Toilet # Voids 3 1 - Exam Inspection of lumbar spine shows benign surgical wounds with dressings intact and no signs of infection, drainage or active bleeding. L2-S1 dermatomes and myotomes appear to be grossly intact throughout bilateral lower extremities. calves are SNT. 2+ DP pulses and less than 2 sec cap refill is present bi laterally - Constitutional General appearance: Present: no acute distress - Labs CBC & Chem 7: 07/02/20 05:54 06/30/20 06:22 Labs: Abnormal Lab Results - Last 24 Hours (Table) 07/02/20 Range/Units 05:54 Procalcitonin 0.31 H (0.02-0.09) ng/mL Microbiology - Last 24 Hours (Table) 07/02/20 01:00 Urine Culture - Final Urine,Voided 07/01/20 07:24 Blood Culture - Preliminary Blood No Growth after 48 hours Assessment and Plan (1) S/P lumbar fusion Narrative/Plan: She will continue with routine post op orthopedic spine protocol including pain management, PT, DVT prophylaxis, and medical management. Her pain is better controlled on Percocet 5/325. She had some low grade fevers and was put on IV ancef per IM for possible UTI. Expect she will be able to to D/C to home tomorrow. Current Visit: Yes Status: Acute Priority: Medium Code(s): Z98.1 - ARTHRODESIS STATUS SNOMED Code(s): 15774939017775 Time with Patient: Less than 30
[2020-07-03] MEDS: LACTATED RINGERS 1,000 ML IV SCH (15:33)
[2020-07-03] MEDS: GABAPENTIN 300 MG CAP PO SCH (20:06)
[2020-07-03] MEDS: ATORVASTATIN 20 MG TAB PO SCH (20:06)
[2020-07-03] MEDS: LISINOPRIL-HCTZ 10-12.5 MG 1 EACH TAB PO SCH (20:06)
--- NOTE | 2020-07-03 21:08 | P.PN ---
Progress Note - Text Progress Note Date: 07/03/20 presenting complaint: Lumbar surgery Interval history: patient underwent lumbar surgery on June 29.being treated for acute UTI with IV Ancef. Today-has been out of bed in the hallway. Eating okay. No fever. Back pain present. Review of systems: Was done for constitutional, cardiovascular, GI, pulmonary. relevant finding as above Active Medications Acetaminophen (Acetaminophen Tab 325 Mg Tab) 650 mg PO Q6HR PRN PRN Reason: Fever and/ or Pain Last Admin: 07/01/20 07:22 Dose: 650 mg Documented by: Atorvastatin Calcium (Atorvastatin 20 Mg Tab) 20 mg PO HS [facility] Last Admin: 07/03/20 20:06 Dose: 20 mg Documented by: Benzocaine/Menthol (Benzocaine/Menthol Lozeng 1 Each Lozenge) 1 each MUCOUS MEM Q4HR PRN PRN Reason: Sore Throat Cyclobenzaprine HCl (Cyclobenzaprine 10 Mg Tab) 10 mg PO TID PRN PRN Reason: Pain Last Admin: 07/01/20 13:46 Dose: 10 mg Documented by: Diazepam (Diazepam 2 Mg Tab) 2 mg PO TID PRN PRN Reason: Spasms Last Admin: 07/03/20 08:39 Dose: 2 mg Documented by: Gabapentin (Gabapentin 300 Mg Cap) [address] [facility] Last Admin: 07/03/20 20:06 Dose: 600 mg Documented by: Lisinopril/HCTZ (Lisinopril-Hctz 10-12.5 Mg 1 Each Tab) [address] [facility] Last Admin: 07/03/20 20:06 Dose: 1 each Documented by: Hydromorphone HCl (Hydromorphone 0.5 Mg/0.5 Ml Syringe) 0.5 mg IVP Q4HR PRN PRN Reason: Pain Hydromorphone HCl (Hydromorphone 1 Mg/Ml 1 Ml Syringe) 1 mg IVP Q4HR PRN PRN Reason: Pain Last Admin: 07/02/20 23:38 Dose: 1 mg Documented by: Lactated Ringer's (Lactated Ringers) 1,000 mls @ 20 mls/hr IV .Q24H [facility] Last Admin: 07/03/20 15:33 Dose: Not Given Documented by: Sodium Chloride (Saline 0.9%) 1,000 mls @ 75 mls/hr IV .[id number] [facility] Last Admin: 07/03/20 12:52 Dose: Not Given Documented by: Cefazolin Sodium 2 gm/ Sodium (Chloride) 50 mls @ 100 mls/hr IVPB Q8H [facility] Last Admin: 07/03/20 20:06 Dose: 100 mls/hr Documented by: Lidocaine HCl (Lidocaine 1% (10mg/Ml) For Iv Start) 0.1 ml INTRADERMA PER PROTOCOL PRN PRN Reason: IV Start Last Admin: 06/29/20 12:14 Dose: 0.1 ml Documented by: Magnesium Hydroxide (Magnesium Hydroxide 2,400 Mg/10 Ml Cup) 2,400 mg PO DAILY PRN PRN Reason: Constipation Ondansetron HCl (Ondansetron 4 Mg/2 Ml Vial) 4 mg IVP Q6HR PRN PRN Reason: Nausea Oxycodone/Acetaminophen (Oxycodone-Apap 5-325mg 1 Each Tab) 1 each PO Q4HR PRN PRN Reason: Pain Scale 1 to 5 Oxycodone/Acetaminophen (Oxycodone-Apap 5-325mg 1 Each Tab) 2 each PO Q6HR PRN PRN Reason: Pain Scale 6 to 10 Last Admin: 07/03/20 16:35 Dose: 2 each Documented by: Senna/Docusate Sodium (Sennosides-Docusate Sodium 1 Each Tab) 1 each PO DAILY [facility] Last Admin: 07/03/20 08:39 Dose: 1 each Documented by: Tramadol HCl (Tramadol 50 Mg Tab) 50 mg PO QID PRN PRN Reason: Pain Last Admin: 07/01/20 17:19 Dose: 50 mg Documented by: On examination: VITAL SIGNS:98.1, 76, 101/67, 97% room air GENERAL APPEARANCE: laying in bed, awake HEENT: Normal external appearance of nose and ear. Oral cavity normal EYES: Pupils equal. Conjunctiva normal. NECK: JVD not raised. Mass not palpable. RESPIRATORY: Respiratory effort normal. Lungs clear to auscultation. CARDIOVASCULAR: First and second sounds normal. No edema. ABDOMEN: Soft. Liver and spleen not palpable. No tenderness. No mass palpable. PSYCHIATRY: Alert and oriented x3. Mood and affect normal. INVESTIGATIONS, reviewed in the clinical context: White count 11 hemoglobin 11.4 UA positive Previous testing white count 8.3 hemoglobin 12.1 platelets 272 potassium 3.9 creatinine 0.6 Assessment: -L4-L5 laminectomy decompression -Hyperlipidemia -Essential hypertension -Hiatal hernia- -acute UTI with cystitis. Plan: keep patient on IV Ancef today. Swished to Keflex tomorrow. Other medications to continue. Discussed with the patient. Thank you Dr. Menjivar
[2020-07-04 02:40] VITALS: TEMP 98.2
[2020-07-04] MEDS: SODIUM CHLORIDE 0.9% 1,000 ML IV SCH (03:47)
[2020-07-04] MEDS: oxyCODONE-APAP 5-325MG 1 EACH TAB PO PRN ×2 (04:47→09:52)
[2020-07-04 06:33] LABS: HCT 32.7 % (34.0-46.0); HGB 11.2 gm/dL (11.4-16.0); MCH 30.3 pg (25.0-35.0); MCHC 34.1 g/dL (31.0-37.0); Mean Platelet Volume 7.9; Platelet Count 363 k/uL (150-450); RBC 3.68 m/uL (3.80-5.40); RDW 11.9 % (11.5-15.5); WBC 6.6 k/uL (3.8-10.6)
[2020-07-04] MEDS: SENNOSIDES-DOCUSATE SODIUM 1 EACH TAB PO SCH (07:46)
[2020-07-04] MEDS: CEPHALEXIN 250 MG CAP PO SCH ×3 (07:46→12:39)
[2020-07-04 07:53] VITALS: BP 90/60; PULSE 101; RESP 16
--- NOTE | 2020-07-04 12:48 | P.DS ---
Providers Date of admission: 07/01/20 10:26 Expected date of discharge: 06/27/20 Attending physician: Rodríguez Menjivar Consults: 06/29/20 15:48 Consult Physician Routine Consulting Provider: Ulysses Paris Consult Reason/Comments: Medical management Do you want consulting provider notified?: Yes 07/01/20 06:17 Consult Physician Routine Consulting Provider: Khadar Ferrell Consult Reason/Comments: fevers Do you want consulting provider notified?: Yes, Notify in am Primary care physician: Francis Mitchell MD - Discharge Diagnosis(es) (1) Lumbar pseudoarthrosis Current Visit: Yes Status: Acute (2) Low back pain Current Visit: Yes Status: Acute (3) Radiculopathy with lower extremity symptoms Current Visit: Yes Status: Acute (4) Lumbar degenerative disc disease Current Visit: Yes Status: Acute (5) Scoliosis Current Visit: Yes Status: Acute (6) History of fusion of thoracic spine Current Visit: Yes Status: Acute (7) History of lumbar fusion Current Visit: Yes Status: Acute (8) S/P lumbar fusion Current Visit: Yes Status: Acute Priority: Medium (9) Hypertension Current Visit: Yes Status: Acute (10) Hyperlipidemia Current Visit: Yes Status: Acute (11) Urinary tract infection Current Visit: Yes Status: Acute Hospital Course: This is a pleasant 60-year-old female who presented with L4-5 pseudoarthrosis, scoliosis, lumbar degenerative disc disease, lower extremity radiculopathy, and low back pain who failed outpatient conservative therapy. She was admitted for an L4-5 minimally invasive posterior lateral decompression and fusion with transforaminal lumbar interbody fusion. Patient initially had some difficulty with pain control but her pain is been much better controlled since adding Percocet 5 mg/325 mg. She has been able to ambulate with the assistance of a walker. She has a walker at home. Her low back pain is much better controlled today than it was over the weekend. She states her lower extremity radiculopathy symptoms haven't improved. She does have some generalized achy pain over the bilateral thighs without specific radicular pattern which we discussed could be due to surgical positioning. She is happy with her progress over the past several days postoperatively. She feels she is ready for discharge home today. Condition on day of discharge stable. Patient was cleared preoperatively for surgery by Dr. Hinds. Patient currently denies any nausea, vomiting, fever, or chills. Patient is eating and voiding freely without difficulty. She has not had a bowel movement but is not experiencing any abdominal pain. She is passing gas. Her abdomen is soft nontender. She does take Senokot in the outpatient setting and is given a prescription for Senokot at discharge. Dressings have been removed from her surgical sites. Surgical sites are dry with no drainage. Patient may shower without a dressing intact at this time. Patient should refrain from driving until at least after their first follow-up appointment in the office. Patient should avoid excessive bending, lifting, and twisting; no lifting greater than 10 pounds. Patient should avoid excessive neck flexion, extension, rotation, and lateral sidebending; no overhead lifting; no lifting greater than 10 pounds. Patient's past medical history includes hypertension and hyperlipidemia. MAPS has been reviewed today, 07/04/2020, with an Overall Overdose Risk Score of 240. An "Opiod Start Talking" Form has been signed and placed in the patient's chart. A prescription has been written for Percocet 5 mg/325 mg 1-2 tabs every 6 hours as needed for pain, dispense #56. This prescription has been sent to [facility] pharmacy located [facility]. Pharmacy has been contacted to not fill previously prescribed Ultram 50 mg. Patient should avoid anti-inflammatory medication over the next 6 weeks postoperatively. Patient is also given a prescription for Keflex 250 mg 1 tablet 4 times a day for 5 days by medicine for treatment for acute urinary tract infection. Patient may use walker at home to aid in ambulation as needed Physical Exam on day of discharge: Patient is awake, alert, and oriented 3 Vital signs stable Good chest excursion with deep inspiration and expiration Abdomen soft nontender; no evidence of distention No signs or symptoms of DVT; no calf pain; calves are soft bilaterally Extensor hallucis longus, plantarflexion, and dorsiflexion positive sustained bilateral lower extremities Incision sites are clean, dry, and intact; no erythema, purulence, or signs of infection Dressings have been removed over the surgical sites; no active drainage No significant pain with palpation over the surgical sites Evidence of a previous large well-healed incision along the thoracolumbar spine Evidence of a previous well-healed incision over the right iliac crest Procedures: L4-5 minimally invasive posterior lateral decompression and fusion with transforaminal lumbar interbody fusion Patient Condition at Discharge: Stable Plan - Discharge Summary Discharge Rx Participant: Yes New Discharge Prescriptions: New traMADol HCL [Ultram] 50 mg PO Q6HR PRN #56 tab PRN Reason: Pain Cephalexin [Keflex] 250 mg PO QID #20 cap Sennosides-Docusate Sodium [Senokot-S] 1 each PO DAILY tab oxyCODONE-APAP 5-325MG [Percocet 5-325 mg] 1 - 2 tab PO Q6HR PRN #56 tab PRN Reason: Pain Continue Atorvastatin Calcium [Lipitor] 20 mg PO HS Lisinopril-Hctz 10-12.5 mg [Zestoretic 10-12.5] 1 tab PO HS HYDROcodone/APAP 5-325MG [[place] 5-325] 1 tab PO TID PRN PRN Reason: Pain Gabapentin 600 mg PO HS Cyclobenzaprine [Flexeril] 10 mg PO TID PRN PRN Reason: Pain Discharge Medication List Atorvastatin Calcium [Lipitor] 20 mg PO HS 07/09/18 [History] Lisinopril-Hctz 10-12.5 mg [Zestoretic 10-12.5] 1 tab PO HS 07/09/18 [History] Cyclobenzaprine [Flexeril] 10 mg PO TID PRN 06/27/20 [History] Gabapentin 600 mg PO HS 06/27/20 [History] HYDROcodone/APAP 5-325MG [[place] 5-325] 1 tab PO TID PRN 06/27/20 [History] traMADol HCL [Ultram] 50 mg PO Q6HR PRN #56 tab 07/01/20 [Rx] Cephalexin [Keflex] 250 mg PO QID #20 cap 07/04/20 [Rx] Sennosides-Docusate Sodium [Senokot-S] 1 each PO DAILY tab 07/04/20 [Rx] oxyCODONE-APAP 5-325MG [Percocet 5-325 mg] 1 - 2 tab PO Q6HR PRN #56 tab 07/04/20 [Rx] Follow up Appointment(s)/Referral(s): Edward Allred PAC [PHYSICIAN [employer] CONSULTANT] - 2 Weeks (Patient may follow-up with Edward Allred PA-C or Dr. Chetan Menjivar at [facility] in 2-3 weeks following discharge. ) Francis Mitchell MD [Primary Care Provider] - 1 Week Activity/Diet/Wound Care/Special Instructions: 1. Patient may shower without dressing intact. 2. Patient may use walker to aid in ambulation as needed 3. Patient should refrain from driving until at least after their first follow- up appointment in the office. 4. Patient should avoid excessive bending, twisting, and lifting; no lifting greater than 10 pounds 5. Take medications as prescribed 6. Patient should avoid anti-inflammatory medications over the next 6 weeks postoperatively 7. Do not soak in tub Discharge Disposition: HOME SELF-CARE
--- NOTE | 2020-07-04 23:03 | P.PN ---
Progress Note - Text Progress Note Date: 07/04/20 presenting complaint: Lumbar surgery Interval history: patient underwent lumbar surgery on June 29.being treated for acute UTI with IV Ancef. Today-feeling much better. No fever. Oral intake better. Urine symptoms much improved. Discussed with the patient. Ambulating better. Review of systems: Was done for constitutional, cardiovascular, GI, pulmonary. relevant finding as above Current medications reviewed by me in electronic records On examination: VITAL SIGNS: 98.2, 101, 16, 90 x 60, 94% room air GENERAL APPEARANCE: Comfortable HEENT: Normal external appearance of nose and ear. Oral cavity normal EYES: Pupils equal. Conjunctiva normal. NECK: JVD not raised. Mass not palpable. RESPIRATORY: Respiratory effort normal. Lungs clear to auscultation. CARDIOVASCULAR: First and second sounds normal. No edema. ABDOMEN: Soft. Liver and spleen not palpable. No tenderness. No mass palpable. PSYCHIATRY: Alert and oriented x3. Mood and affect normal. INVESTIGATIONS, reviewed in the clinical context: White count 6.6 hemoglobin 11.2 UA positive Previous testing white count 8.3 hemoglobin 12.1 platelets 272 potassium 3.9 creatinine 0.6 Urine and blood culture both negative Assessment: -L4-L5 laminectomy decompression -Hyperlipidemia -Essential hypertension -Hiatal hernia- -acute UTI with cystitis. Plan: Change to oral Keflex. Follow-up with PCP. Doing better. Thank you Dr. Menjivar
== END 2020-07-04 14:38 | disposition home or self-care (01) | DRG 982 ==
LOC: OR 11:18 → 4SSUR 15:38 → OR 06-30 03:33 → OBSVTOIN 07-01 10:26
PROVIDERS: ADMIT Orthopaedic Surgery Orthopaedic Surgery of the Spine; ATTEND Orthopaedic Surgery Orthopaedic Surgery of the Spine
PROC: 0ST20ZZ Resection of Lumbar Vertebral Disc, Open Approach (ICD-10-PCS; 2020-06-29)
PROC: 01NB0ZZ Release Lumbar Nerve, Open Approach (ICD-10-PCS; 2020-06-29)
PROC: 0SG0071 Fusion of Lumbar Vertebral Joint with Autologous Tissue Substitute, Posterior Approach, Posterior Column, Open Approach (ICD-10-PCS; 2020-06-29)
PROC: 0SG00AJ Fusion of Lumbar Vertebral Joint with Interbody Fusion Device, Posterior Approach, Anterior Column, Open Approach (ICD-10-PCS; principal; 2020-06-29 12:45)
DX: N30.00 Acute cystitis without hematuria (principal); M96.0 Pseudarthrosis after fusion or arthrodesis; M41.86 Other forms of scoliosis, lumbar region; E78.5 Hyperlipidemia, unspecified; I10 Essential (primary) hypertension; M51.16 Intervertebral disc disorders with radiculopathy, lumbar region; M47.26 Other spondylosis with radiculopathy, lumbar region; K44.9 Diaphragmatic hernia without obstruction or gangrene; K57.90 Diverticulosis of intestine, part unspecified, without perforation or abscess without bleeding; G89.29 Other chronic pain; M43.16 Spondylolisthesis, lumbar region; L29.9 Pruritus, unspecified; Y83.8 Other surgical procedures as the cause of abnormal reaction of the patient, or of later complication, without mention of misadventure at the time of the procedure; Z96.653 Presence of artificial knee joint, bilateral; Z90.49 Acquired absence of other specified parts of digestive tract; Z98.890 Other specified postprocedural states; Z79.899 Other long term (current) drug therapy; Z98.1 Arthrodesis status; Z88.1 Allergy status to other antibiotic agents; Z88.8 Allergy status to other drugs, medicaments and biological substances; Z80.9 Family history of malignant neoplasm, unspecified; Z82.49 Family history of ischemic heart disease and other diseases of the circulatory system; Z81.1 Family history of alcohol abuse and dependence; Z83.79 Family history of other diseases of the digestive system
CPT/HCPCS: 71045; 72100; 80048; 81001; 84145; 85025; 85027; 86850; 86891; 86900; 86901; 87040; 87086

== ENCOUNTER 2022-11-10 18:32 | Emergency (ER) | payer BC ==
[2022-11-10 18:39] VITALS: TEMP 97.8
[2022-11-10] MEDS ORDERED: KETOROLAC 15 MG/ML 1 ML VIAL IVP STA (18:56)
[2022-11-10] MEDS ORDERED: ONDANSETRON 4 MG/2 ML VIAL IVP STA (18:56)
[2022-11-10] MEDS ORDERED: SODIUM CHLORIDE 0.9% 1,000 ML IV STA (18:56)
--- NOTE | 2022-11-10 19:04 | ED ---
Abdominal Pain HPI - General Chief Complaint: Abdominal Pain Stated Complaint: Abdominal Pain Time Seen by Provider: 11/10/22 18:40 Source: patient, family, RN notes reviewed Mode of arrival: ambulatory Limitations: no limitations - History of Present Illness Initial Comments: This is a 62-year-old female who presents to the emergency department for abdo andrews pain. States that she has had intermittent left upper quadrant pain for the last 2 weeks, however today it has been persistent since about 1 PM. She has associated nausea and vomiting. She did see her primary care provider about this about 3 days ago. She had lab work done and was referred for an upper endoscopy, which is scheduled for next month. Prior to 2 weeks ago, she has not experienced anything like this. Denies any pain in the back. Unsure if this correlates with the foods that she eats. She also has no history of kidney stones. Denies any changes in bowel or urinary habits. Denies any fevers, chills, sore throat, cough, dyspnea, chest pain, palpitations, diarrhea, back pain, or headaches. MD Complaint: abdominal pain Onset/Timin -: week(s) - Related Data Home Medications Medication Instructions Recorded Confirmed Atorvastatin Calcium [Lipitor] 20 mg PO HS 07/09/18 06/29/20 Lisinopril-Hctz 10-12.5 mg 1 tab PO HS 07/09/18 06/29/20 [Zestoretic 10-12.5] Cyclobenzaprine [Flexeril] 10 mg PO TID PRN 06/27/20 06/29/20 Gabapentin 600 mg PO HS 06/27/20 06/29/20 HYDROcodone/APAP 5-325MG [[place]ton 1 tab PO TID PRN 06/27/20 06/29/20 5-325] Previous Rx's Medication Instructions Recorded traMADol HCL [Ultram] 50 mg PO Q6HR PRN #56 tab 07/01/20 Cephalexin [Keflex] 250 mg PO QID #20 cap 07/04/20 Sennosides-Docusate Sodium 1 each PO DAILY tab 07/04/20 [Senokot-S] oxyCODONE-APAP 5-325MG [Percocet 1 - 2 tab PO Q6HR PRN #56 tab 07/04/20 5-325 mg] Famotidine [Pepcid] 20 mg PO BID 7 Days #14 tablet 11/10/22 Ondansetron Odt [Zofran Odt] 4 mg PO Q8HR PRN #15 tab 11/10/22 Sucralfate [Carafate] 1 gm PO Q6H PRN 7 Days #28 tablet 11/10/22 Allergies Allergy/AdvReac Type Severity Reaction Status Date / Time piperacillin sodium AdvReac Itching Verified 11/10/22 18:39 [From Zosyn] tazobactam sodium AdvReac Itching Verified 11/10/22 18:39 [From Zosyn] Review of Systems ROS Statement: Those systems with pertinent positive or pertinent negative responses have been documented in the HPI. ROS Other: All systems not noted in ROS Statement are negative. Past Medical History Past Medical History: Hyperlipidemia, Hypertension, Musculoskeletal Disorder Additional Past Medical History / Comment(s): Scoliosis, Degenerative Joint Disease, Hiatal Hernia, hx Diverticulitis. History of Any Multi-Drug Resistant Organisms: None Reported Past Surgical History: Appendectomy, Back Surgery, Bowel Resection, Section, Cholecystectomy, Joint Replacement, Orthopedic Surgery, Tonsillectomy Additional Past Surgical History / Comment(s): Excison of avulsion fx R patella and patellar tendon repair, bilateral arthroscopic knee(total 5), bilateral knee replacements, 4 back surgeries, right neurectomy chest area. Past Anesthesia/Blood Transfusion Reactions: No Reported Reaction Past Psychological History: No Psychological Hx Reported Smoking Status: Never smoker Past Alcohol Use History: None Reported Past Drug Use History: None Reported - Past Family History Mother Family Medical History: Cancer Additional Family Medical History / Comment(s): . Father Family Medical History: Liver Disease Additional Family Medical History / Comment(s): Cirrhosis of the liver-etoh abuse. General Exam Limitations: no limitations General appearance: alert, in distress Head exam: Present: atraumatic, normocephalic, normal inspection Respiratory exam: Present: normal lung sounds bilaterally. Absent: respiratory distress, wheezes, rales, rhonchi, stridor Cardiovascular Exam: Present: regular rate, normal rhythm, normal heart sounds. Absent: systolic murmur, diastolic murmur, rubs, gallop, clicks GI/Abdominal exam: Present: soft, tenderness (LUQ), normal bowel sounds. Absent: distended Back exam: Absent: CVA tenderness (R), CVA tenderness (L) Neurological exam: Present: alert, oriented X3, CN II-XII intact Psychiatric exam: Present: normal affect, normal mood Skin exam: Present: warm, dry, intact, normal color. Absent: rash Course Vital Signs 11/10/22 11/10/22 11/10/22 18:35 20:38 22:42 Temperature 97.8 F Pulse Rate 101 H 70 85 Respiratory 22 18 18 Rate Blood Pressure 130/76 151/90 114/74 O2 Sat by Pulse 99 98 97 Oximetry Medical Decision Making - Medical Decision Making This is a 62-year-old female who presents to the emergency department for abdominal pain. Was pt. sent in by a medical professional or institution? @ -No Did you speak to anyone other than the patient for history? @ -Her Did you review nursing and triage notes? @ -Yes, and I agree, it is accurate with regards to the patient's symptoms. Were old charts reviewed? @ -No Differential Diagnosis? @ -Differential Abdominal Pain Women: Diverticulosis, ischemic bowel, pancreatitis, hepatitis, UTI, gastroenteritis, AAA, incarcerated hernia, bowel obstruction, constipation, inflammatory bowel, hepatitis, peptic ulcer disease, splenic infarction, perforated viscus, vulvitis, ovarian torsion, PID, kidney stone, placenta abruption, this is not meant to be an all-inclusive list EKG interpreted by me (3pts min.)? @ -Sinus rhythm. Ventricular rate 80 bpm, DC interval 155 ms, QRS duration 73 ms, QTC [address] interpreted by me (1pt min.)? @ -Computed tomography scan of the abdomen and pelvis obtained. My interpretation identifies no evidence of bowel wall thickening or free air. What testing was considered but not performed? (CT, X-rays, U/S, labs)? Why? @ -None What meds were considered but not given? Why? @ -None Did you discuss the management of the patient with other professionals? @ -No Did you reconcile home meds? @ -No Was smoking cessation discussed for >3mins.? @ -No Was critical care preformed (if so, how long)? @ -No Were there social determinants of health that impacted care today? How? (Homelessness, low income, unemployed, alcoholism, drug addiction, transportation, low edu. Level, literacy, decrease access to med. care, longterm, rehab)? @ -No Was there de-escalation of care discussed even if they declined? (Discuss DNR or withdrawal of care, Hospice)? @ -No What co-morbidities impacted this encounter? (DM, HTN, Smoking, COPD, CAD, Cancer, CVA, Hep., AIDS, mental health diagnosis, sleep apnea, morbid obesity)? @ -HLD, HTN Was patient admitted / discharged? @ -Discharged. Lab work obtained and found to be nonactionable aside from a mildly elevated lactic acid consistent with dehydration. Computed tomography scan of the abdomen and pelvis obtained revealing no acute findings to account for the patient's symptoms. She was given IV fluids, Toradol, and morphine initially, which did not manage her symptoms. She was then given a dose of Dilaudid, Pepcid, and Carafate. Symptoms essentially resolved after those medications. Given the lack of imaging findings and the description/location of the patient's pain, I'm suspicious for a peptic ulcer. She is advised to continue taking the pantoprazole she was just prescribed. Instructed her to take it 30 minutes before eating or taking other medications. Prescriptions for Carafate, Pepcid, and Zofran provided as well with dosing instructions reviewed. Instructed her to avoid any spicy or acidic foods for the meantime. She will otherwise follow up for the EGD as scheduled. Undiagnosed new problem with uncertain prognosis? @ -None Drug Therapy requiring intensive monitoring for toxicity (Heparin, Nitro, Insulin, Cardizem)? @ -None Were any procedures done? @ -None Diagnosis/symptom? @ -LUQ pain, peptic ulcer Acute, or Chronic, or Acute on Chronic? @ -Acute Uncomplicated (without systemic symptoms) or Complicated (systemic symptoms)? @ -Uncomplicated Side effects of treatment? @ -None Exacerbation, Progression, or Severe Exacerbation] @ -Not applicable Poses a threat to life or bodily function? @ -No Return precautions reviewed in depth, the patient is instructed to return to the emergency department with any new, worsening, or concerning symptoms. Patient verbalized understanding. This case was discussed in detail with the attending ED physician, Dr. Salinas. Presentation, findings, and treatment plan discussed in detail as well. - Lab Data Result diagrams: 11/10/22 19:03 11/10/22 19:03 Lab Results 11/10/22 11/10/22 11/10/22 Range/Units 19:03 19:03 19:03 WBC 9.8 (3.8-10.6) k/uL RBC 5.30 (3.80-5.40) m/uL Hgb 16.4 H (11.4-16.0) gm/dL Hct 47.5 H (34.0-46.0) % MCV 89.8 (80.0-100.0) fL MCH 30.9 (25.0-35.0) pg MCHC 34.4 (31.0-37.0) g/dL RDW 13.0 (11.5-15.5) % Plt Count 405 (150-450) k/uL MPV 9.1 Neutrophils % 66 % Lymphocytes % 25 % Monocytes % 5 % Eosinophils % 2 % Basophils % 1 % Neutrophils # 6.4 (1.3-7.7) k/uL Lymphocytes # 2.4 (1.0-4.8) k/uL Monocytes # 0.5 (0-1.0) k/uL Eosinophils # 0.2 (0-0.7) k/uL Basophils # 0.1 (0-0.2) k/uL PT 10.2 (9.0-12.0) sec INR 1.0 (<1.2) APTT 23.5 (22.0-30.0) sec Sodium 139 (137-145) mmol/L Potassium 4.1 (3.5-5.1) mmol/L Chloride 98 (98-107) mmol/L Carbon Dioxide 30 (22-30) mmol/L Anion Gap 11 mmol/L BUN 19 H (7-17) mg/dL Creatinine 0.89 (0.52-1.04) mg/dL Est GFR (CKD-EPI)AfAm 79 (>60 ml/min/1.73 sqM) Est GFR (CKD-EPI)NonAf 69 (>60 ml/min/1.73 sqM) Glucose 146 H (74-99) mg/dL Lactic Ac Sepsis Rflx Plasma Lactic Acid Tr (0.7-2.0) mmol/L Calcium 10.1 (8.4-10.2) mg/dL Total Bilirubin 0.8 (0.2-1.3) mg/dL AST 26 (14-36) U/L ALT 25 (4-34) U/L Alkaline Phosphatase 74 (38-126) U/L Troponin I (0.000-0.034) ng/mL Total Protein 7.5 (6.3-8.2) g/dL Albumin 4.5 (3.5-5.0) g/dL Amylase 63 (30-110) U/L Lipase 137 (23-300) U/L 11/10/22 11/10/22 11/10/22 Range/Units 19:03 19:03 20:08 WBC (3.8-10.6) k/uL RBC (3.80-5.40) m/uL Hgb (11.4-16.0) gm/dL Hct (34.0-46.0) % MCV (80.0-100.0) fL MCH (25.0-35.0) pg MCHC (31.0-37.0) g/dL RDW (11.5-15.5) % Plt Count (150-450) k/uL MPV Neutrophils % % Lymphocytes % % Monocytes % % Eosinophils % % Basophils % % Neutrophils # (1.3-7.7) k/uL Lymphocytes # (1.0-4.8) k/uL Monocytes # (0-1.0) k/uL Eosinophils # (0-0.7) k/uL Basophils # (0-0.2) k/uL PT (9.0-12.0) sec INR (<1.2) APTT (22.0-30.0) sec Sodium (137-145) mmol/L Potassium (3.5-5.1) mmol/L Chloride (98-107) mmol/L Carbon Dioxide (22-30) mmol/L Anion Gap mmol/L BUN (7-17) mg/dL Creatinine (0.52-1.04) mg/dL Est GFR (CKD-EPI)AfAm (>60 ml/min/1.73 sqM) Est GFR (CKD-EPI)NonAf (>60 ml/min/1.73 sqM) Glucose (74-99) mg/dL Lactic Ac Sepsis Rflx Y Plasma Lactic Acid Tr 2.1 H* (0.7-2.0) mmol/L Calcium (8.4-10.2) mg/dL Total Bilirubin (0.2-1.3) mg/dL AST (14-36) U/L ALT (4-34) U/L Alkaline Phosphatase (38-126) U/L Troponin I <0.012 (0.000-0.034) ng/mL Total Protein (6.3-8.2) g/dL Albumin (3.5-5.0) g/dL Amylase (30-110) U/L Lipase (23-300) U/L - Radiology Data Radiology results: report reviewed, image reviewed Disposition Clinical Impression: LUQ pain, Peptic ulcer Disposition: HOME SELF-CARE Instructions (If sedation given, give patient instructions): Peptic Ulcer (ED), Diet for Stomach Ulcers and Gastritis (ED), GERD (Gastroesophageal Reflux Disease) (ED) Additional Instructions: Return to the emergency department with any new, worsening, or concerning symptoms. Make sure that you start taking the pantoprazole daily as prescribed. This needs to be taken at least 30 minutes before eating or taking other medicine. Take the Pepcid twice daily as prescribed and the Carafate can be taken 4 times daily as needed. The Carafate is best taken on an empty stomach before eating anything. However if you are not eating anything, you can still take the medication. Avoid any hot/spicy or acidic foods for the meantime. You can take the Zofran up to every 8 hours as needed for nausea and vomiting. Follow up with your primary care provider in 1-2 days. Prescriptions: Sucralfate [Carafate] 1 gm PO Q6H PRN 7 Days #28 tablet PRN Reason: Pain Famotidine [Pepcid] 20 mg PO BID 7 Days #14 tablet Ondansetron Odt [Zofran Odt] 4 mg PO Q8HR PRN #15 tab PRN Reason: Nausea And Vomiting Is patient prescribed a controlled substance at d/c from ED?: No Referrals: Blue Garcia MD [Primary Care Provider] - 1-2 days
[2022-11-10 19:28] LABS: Basophils # (A) 0.1 k/uL (0-0.2); Basophils % (A) 1 %; Eosinophils # (A) 0.2 k/uL (0-0.7); Eosinophils % (A) 2 %; HCT 47.5 % (34.0-46.0); HGB 16.4 gm/dL (11.4-16.0); Lymphocytes # (A) 2.4 k/uL (1.0-4.8); Lymphocytes % (A) 25 %; MCH 30.9 pg (25.0-35.0); MCHC 34.4 g/dL (31.0-37.0); MCV 89.8 fL (80.0-100.0); Mean Platelet Volume 9.1; Monocytes # (A) 0.5 k/uL (0-1.0); Monocytes % (A) 5 %; Neutrophils # (A) 6.4 k/uL (1.3-7.7); Neutrophils % (A) 66 %; Platelet Count 405 k/uL (150-450); WBC 9.8 k/uL (3.8-10.6)
[2022-11-10] MEDS ORDERED: MORPHINE SULFATE 2 MG/ML SYRINGE IVP STA (19:36)
[2022-11-10 19:37] LABS: Partial Thromboplastin Time 23.5 sec (22.0-30.0); Prothrombin Time 10.2 sec (9.0-12.0)
[2022-11-10 19:50] LABS: Albumin 4.5 g/dL (3.5-5.0); Calcium 10.1 mg/dL (8.4-10.2); Potassium 4.1 mmol/L (3.5-5.1); Total Bilirubin 0.8 mg/dL (0.2-1.3); Total Protein 7.5 g/dL (6.3-8.2)
--- NOTE | 2022-11-10 20:21 | CT ---
EXAMINATION TYPE: CT abdomen pelvis w con DATE OF EXAM: 11/10/2022 COMPARISON: None HISTORY: severe epigastric pain CT DLP: 962.5 mGycm Automated exposure control for dose reduction was used. CONTRAST: Performed with IV Contrast, patient injected with 100ml mL of Isovue 300. Images obtained from the diaphragm to the floor the pelvis with the IV contrast. Lung bases are clear of consolidation. There is moderate size hiatal hernia. Heart size is normal. No pericardial effusion. No pleural effusion. There are clips from cholecystectomy. Liver spleen and pancreas appear intact. The bile ducts are not dilated. There is no adrenal mass. Kidneys have normal size and contour. No hydronephrosis. Ureters are not di lated. No retroperitoneal adenopathy. Appendix not clearly seen. No sign thickened appendix. Bladder distends smoothly. No inguinal hernia. No free fluid in the pelvis. Uterus is anteverted. No pelvic m ass. There is small right renal cortical cysts. There is no mesenteric edema. No ascites or free air. No sign of a bowel obstruction. There is pediatric dermatologist ior fusion surgery in the lower lumbar spine with rods and screws. There is moderate thoracolumbar le vo rotoscoliotic deformity. Sacroiliac joints are intact. The hip joints are intact. There is apparen t surgery at the sigmoid colon. IMPRESSION: No acute abnormality in the abdomen pelvis. Previous surgery. Scoliotic deformity. Hiatal hernia.
[2022-11-10] MEDS ORDERED: HYDROmorphone 1 MG/ML 1 ML SYRINGE IVP STA (20:23)
[2022-11-10] MEDS ORDERED: MAG HYDROX/AL HYDROX/SIMETH 30 ML, HYOSCYAMINE ELIXIR 10 ML, LIDOCAINE VISCOUS 2% 10 ML PO STA ×3 (20:23)
[2022-11-10] MEDS ORDERED: FAMOTIDINE 20 MG/2 ML VIAL IV STA (20:23)
[2022-11-10] MEDS ORDERED: SUCRALFATE 1 GM TAB PO STA ×2 (20:24→22:20)
[2022-11-10 20:39] VITALS: RESP 18
[2022-11-10] MEDS ORDERED: PANTOPRAZOLE 40 MG/10 ML VIAL IVP STA (22:19)
[2022-11-10] MEDS ORDERED: FAMOTIDINE 20 MG TAB PO STA (22:20)
[2022-11-10] MEDS ORDERED: oxyCODONE-APAP 7.5-325MG 1 EACH TAB PO STA (22:20)
[2022-11-10] MEDS ORDERED: ONDANSETRON 4 MG ODT STARTER PACK 2 TAB BTL PO STA (22:22)
[2022-11-10] MEDS ORDERED: traMADol 50 MG STARTER PACK 3 TAB BTL PO STA (22:22)
[2022-11-10 22:42] VITALS: BP 114/74; PULSE 85
== END 2022-11-10 23:02 | disposition home or self-care (01) ==
LOC: EC 18:32
DX: K27.9 Peptic ulcer, site unspecified, unspecified as acute or chronic, without hemorrhage or perforation (principal); I10 Essential (primary) hypertension; E78.5 Hyperlipidemia, unspecified; Z79.899 Other long term (current) drug therapy; Z90.49 Acquired absence of other specified parts of digestive tract; Z88.0 Allergy status to penicillin
CPT/HCPCS: 36415; 93005; 80053; 82150; 83605; 83690; 84484; 85025; 85610; 85730; 74177; 99285; 96374; 96375 ×5; 96361; J2405; J2270; J1170; J1885; S0119; C9113; Q9967

== ENCOUNTER → 2023-01-30 | Outpatient (CLI) | payer MEDICARE ==
--- NOTE | 2023-01-30 18:28 | BD ---
EXAMINATION TYPE: Axial Bone Density DATE OF EXAM: 01/30/2023 CLINICAL HISTORY: 62 years old Female. ICD-10 CODE: Z13.820 SCREENING FOR OST Z78.0ASYMPTOMATIC YANELY PAUSAL STATE Height: 61 in Weight: 157 lbs FRAX RISK QUESTIONS: History of Fracture in Adulthood: lt foot age 45; rt patella age 53 Secondary Osteoporosis: 3. Menopause before 45: age 49 RISK FACTORS HISTORY OF: Surgery to Spine: pt had a spinal fusion age 11 Active: limited Postmenopausal woman: age 49 MEDICATIONS: Additional Medications: blood pressure meds, statin meds,gabapentin EXAM MEASUREMENTS: Bone mineral densitometry was performed using the [employer] System. pt had a spine fusion age 11 Bone mineral density about the R hip (g/cm2): 0.863 Bone mineral density about the L hip (g/cm2): 0.742 T Score values are as follows: -----R Neck: -1.8 -----L Neck: -1.4 -----R Total: -1.2 -----L Total: -2.1 Z Score values are as follows: -----R Neck: -0.5 -----L Neck: 0.0 -----R Total: -0.1 -----L Total: -1.1 Bone mineral density baseline Bone mineral density about the L Wrist (g/cm2): 0.470 T Score values are as follows: -----Dist. R+U: -2.2 -----Prox. R+U: -3.1 -----Radius total: -3.4 Z Score values are as follows: -----Dist. R+U: -0.8 -----Prox. R+U: -1.7 -----Radius total: -2.0 Bone mineral density baseline FRAX%s: The graph provided illustrates a 16.0% chance for a major osteoporotic fx and a 2.1% chance f or the hips probability for fx in 10 years time. IMPRESSION: Osteoporosis (T Score less than -2.5). There is increased fracture risk and therapy is usually indicated based on age. Re-Screen 1-2 years. NOTE: T-SCORE=SD OF THE YOUNG ADULT MEAN.
== END | disposition home or self-care (01) ==
LOC: RADBDWWP 07:45
PROVIDERS: ATTEND Internal Medicine
DX: Z12.31 Encounter for screening mammogram for malignant neoplasm of breast (principal); Z13.820 Encounter for screening for osteoporosis; M81.0 Age-related osteoporosis without current pathological fracture; M85.89 Other specified disorders of bone density and structure, multiple sites; Z78.0 Asymptomatic menopausal state
CPT/HCPCS: 77067; 77080

== ENCOUNTER → 2023-02-05 | Outpatient (CLI) | payer MEDICARE ==
--- NOTE | 2023-02-05 10:32 | USB ---
Reason for Exam: Additional evaluation requested from abnormal screening. Patient History: Menarche at age 10. First Full-Term at age 24. Postmenopausal. 08/30/2003, Benign Stereotactic Core Biopsy on the right side. Risk Values: Sandra 5 year model risk: 2.1%. NCI Lifetime model risk: 8.4%. Technique: Method: Targeted. Prior Study Comparison: 06/16/2004 Bilateral Diagnostic Mammogram, [facility]. 09/17/2006 Bilateral Diagnostic Mammogram, [facility]. 01/30/2023 Bilateral MG screening mammo w CAD, [facility]. Findings: The upper outer quadrant of the right breast, the axilla of the right breast and the retroareolar of the right breast were scanned. Targeted ultrasound right breast upper outer quadrant 9:00 to 12:00 including the subareolar region and axilla. At the 9:00 position, 4 cm from the nipple, there is an 8 mm benign cyst, likely mammographic correlate. No other solid or cystic lesion. Six-month follow-up right breast mammogram can be performed. Overall Assessment: Probably benign, BI-RAD 3 Management: Diagnostic Mammogram of the right breast in 6 months. A clinical breast exam by your physician is recommended on an annual basis and results should be correlated with mammographic findings. This exam should not preclude additional follow-up of suspicious palpable abnormalities. Results were given to the patient verbally at the time of exam. Electronically signed and approved by: Ivette Delaney M.D. Radiologist
== END | disposition home or self-care (01) ==
LOC: RADUSWWP 09:35
PROVIDERS: ATTEND Internal Medicine
DX: R92.8 Other abnormal and inconclusive findings on diagnostic imaging of breast (principal); Z78.0 Asymptomatic menopausal state

== ENCOUNTER → 2023-04-11 | Outpatient (CLI) | payer MEDICARE ==
[2023-04-11 22:59] LABS: Basophils # (A) 0.17 X 10*3/uL (0.00-0.10); Basophils % (A) 2.1 %; Eosinophils # (A) 0.27 X 10*3/uL (0.04-0.35); Eosinophils % (A) 3.3 %; HCT 50.4 % (37.2-46.3); HGB 16.4 d/dL (12.0-15.0); Lymphocytes # (A) 3.24 X 10*3/uL (0.90-5.00); Lymphocytes % (A) 39.3 %; MCH 30.4 pg (27.0-32.0); MCHC 32.5 d/dL (32.0-37.0); MCV 93.3 FL (80.0-97.0); Mean Platelet Volume 12.5 FL (9.5-12.2); Monocytes % (A) 7.3 %; NRBC Per 100 WBC 0 X 10*3/uL (0.00-0.01); Neutrophils # (A) 3.96 X 10*3/uL (1.80-7.70); Neutrophils % (A) 47.9 %; Platelet Count 391 X 10*3/uL (140-440); RDW 13.2 % (11.5-14.5); WBC 8.25 X 10*3/uL (4.50-10.00)
== END | disposition home or self-care (01) ==
LOC: LABWHC1 13:33
PROVIDERS: ATTEND Surgery
DX: Z01.812 Encounter for preprocedural laboratory examination (principal); K21.9 Gastro-esophageal reflux disease without esophagitis
CPT/HCPCS: 36415; 85025; 93005

== ENCOUNTER → 2023-04-12 | Outpatient (CLI) | payer MEDICARE | END | disposition home or self-care (01) | LOC: LABWHC1 07:09 | PROVIDERS: ATTEND Surgery | DX: Z01.818 Encounter for other preprocedural examination (principal); R00.1 Bradycardia, unspecified | CPT/HCPCS: 36415; 93005 ==

== ENCOUNTER 2023-04-19 05:38 | Day surgery (SDC) | payer MEDICARE, BC ==
[2023-04-15 16:02] VITALS: BMI 27.4
[~2023-04-19 05:38] MED LIST changes: +ACETAMINOPHEN TAB 500 MG TAB PO PRN; -DEXAMETHASONE SOD PHOSPHATE 4 MG/ML 1 ML VIAL IV ONE; +HEPARIN SODIUM,PORCINE/PF 5,000 UNIT/0.5 ML SYRINGE SQ PRN; -LIDOCAINE 1% (10MG/ML) FOR IV START INTRADERMA PRN; -ONDANSETRON 4 MG/2 ML VIAL IVP ONE; -ceFAZolin 1,000 MG in SODIUM CHLORIDE 0.9% IRRIGATIO 1,000 ML IRRIGATION ONE
[2023-04-19] MEDS ORDERED: LIDOCAINE 1% (10MG/ML) FOR IV START INTRADERMA PRN (06:10)
[2023-04-19] MEDS ORDERED: ONDANSETRON 4 MG/2 ML VIAL IVP ONE (06:10)
[2023-04-19] MEDS ORDERED: DEXAMETHASONE SOD PHOSPHATE 4 MG/ML 1 ML VIAL IV ONE (06:10)
[2023-04-19] MEDS: LACTATED RINGERS 1,000 ML IV SCH ×2 (06:47→20:46)
[2023-04-19] MEDS ORDERED: METOCLOPRAMIDE 5 MG/ML 2 ML VIAL IVP PRN (07:00)
[2023-04-19] MEDS ORDERED: NEOSTIGMINE 1 MG/ML 10 ML VIAL ONE (07:09)
[2023-04-19] MEDS ORDERED: MIDAZOLAM 2 MG/2 ML VIAL ONE (07:09)
[2023-04-19] MEDS ORDERED: GLYCOPYRROLATE 0.2 MG/ML 2 ML VIAL ONE (07:09)
[2023-04-19] MEDS ORDERED: PROPOFOL 10 MG/ML 20 ML VIAL IV ONE (07:09)
[2023-04-19] MEDS ORDERED: fentaNYL (PF) 50 MCG/ML 2 ML AMP ONE (07:09)
[2023-04-19] MEDS ORDERED: ROCURONIUM 10 MG/ML (5 ML VIAL) IV ONE (07:09)
[2023-04-19] MEDS ORDERED: ePHEDrine 50 MG/ML 1 ML VIAL ONE (07:09)
[2023-04-19] MEDS ORDERED: KETOROLAC 15 MG/ML 1 ML VIAL ONE (07:09)
[2023-04-19] MEDS ORDERED: LIDOCAINE 2% INJ 20 MG/ML (2 ML VIAL) ONE (07:09)
[2023-04-19] MEDS ORDERED: SUCCINYLCHOLINE CHLORIDE 200 MG/10 ML VIAL IV ONE (07:09)
[2023-04-19] MEDS ORDERED: PHENYLEPHRINE-0.9% NACL SYG 1,000 MCG/10 ML SYRINGE ONE (07:09)
[2023-04-19] MEDS ORDERED: BUPIVACAINE (PF) 0.25% 30 ML VIAL SQ ONE (07:34)
[2023-04-19] MEDS ORDERED: LACTATED RINGERS 1,000 ML IV ONE ×2 (08:35→08:47)
--- NOTE | 2023-04-19 08:46 | P.OP ---
Date of Procedure: 04/19/23 Preoperative Diagnosis: Paraesophageal hiatal hernia Postoperative Diagnosis: Paraesophageal hiatal hernia with one half stomach in the chest Procedure(s) Performed: Laparoscopic repair of paraesophageal hiatal hernia with mesh Anesthesia: MARQUIS Surgeon: Yomi Rankin Estimated Blood Loss (ml): 5 Pathology: none sent Condition: stable Disposition: PACU Operative Findings: Large paraesophageal hiatal hernia with approximately 50% stomach and chest Description of Procedure: The patient was placed on the operating table in the supine position. The patient received general anesthesia. And was placed in dorsal lithotomy position. The patient was prepped and draped in the usual sterile fashion. The skin incision sites were anesthetized with 1% local Xylocaine. The skin was incised in the left periumbilical area and then using a blade less 5 mm trocar under direct visualization panel cavity was entered. After adequate insufflation the laparoscope was then placed into the peritoneal cavity. Next a 5 mm trochars placed in the right epigastric position. Another 5 millimeter trocar the right lateral position. Another 5 millimeter trocar in the left lateral position a 5 mm trocar is placed in the left epigastric position. And then the initial 5 mm trocar was exchanged for a 10 mm trocar. The left lateral lobe liver was retracted. The hernia was seen. The patient had a large paraesophageal hiatal hernia. Approximately 50% stomach was in the chest. The stomach was reduced. The crural defect was then dissected using the [employer] scissors device. The hernia sac was dissected. A 360 crural dissection was performed the esophagus stomach was reduced back into the peritoneal Cavity. The crural defect was then closed using 2-0 Ethibond suture. Next the fundus of the stomach was mobilized using the [place] scissors device. and then a 58-Syriac bougie dilator was placed oropharynx passed into the esophagus and stomach the fundal plication wrap was then performed by grasping the fundus posteriorly and bringing it around the esophagus and stomach fundoplication was then performed using 2-0 Ethibond suture. Care was taken that the fundal location rested over top of the intra-abdominal esophagus. There was no injury seen to the stomach or esophagus. The dilator was then withdrawn. The abdomen was irrigated there is no bleeding seen. The trochars were then withdrawn and then skin incision sites were closed using 3-0 Monocryl suture Steri-Strips are applied. Patient thought procedure well and sent to recovery room in stable condition.
[2023-04-19] MEDS ORDERED: ONDANSETRON 4 MG/2 ML VIAL IVP PRN (08:47)
[2023-04-19] MEDS ORDERED: NALOXONE 0.4 MG/ML 1 ML VIAL IV PRN (08:47)
[2023-04-19] MEDS: HYDROmorphone 0.5 MG/0.5 ML SYRINGE IVP PRN ×6 (08:59→20:44)
--- NOTE | 2023-04-19 16:51 | P.CONS ---
History of Present Illness - Reason for Consult Consult date: 04/19/23 - History of Present Illness Patient is a 63-year-old male with history of hypertension, dyslipidemia, presenting for elective paraesophageal hiatal hernia repair. [facility] has been consulted for medical management. She denies any chest pain, shortness breath, nausea, vomiting, urinary complaints. She currently has not had any bowel function since surgery. Patient's current temperature is 96.9, pulse 74, respiratory rate 14, blood pressure 132/84, saturating at 99% on room air. Pertinent positives and negatives as discussed in HPI, a complete review of systems was performed and all other systems are negative. Patient seen and examined at bedside. [] Vital signs reviewed General: nontoxic, no distress, appears at stated age Derm: warm, dry Head: atraumatic, normocephalic, symmetric Eyes: EOMI, no lid lag, anicteric sclera, pupils equal round reactive to light ENT: Nose and ears atraumatic Neck: No thyromegaly, supple Mouth: no lip lesion, mucus membranes moist Cardiovascular: S1S2 reg, no murmur, no edema Lungs: clear to auscultation bilateral, no rhonchi, no rales, no wheeze, no accessory muscle use Abdominal: soft, nontender to palpation, no guarding, no appreciable or ganomegaly Ext: no gross muscle atrophy, muscle strength muscle strength 5 out of 5 in all 4 extremities, no contractures Neuro: CN II-XII grossly intact Psych: Alert, oriented, appropriate affect Assessment/Plan: [Active:] Status post paraesophageal hiatal hernia repair Hypertension Dyslipidemia -CBC and CMP ordered for tomorrow -Home medications reviewed and reconciled -discontinue IV fluids when tolerating oral intake -lovenox for dvt ppx -rest of the care per primary service Thank you for allowing us to participate in the care of this pleasant patient. Do not hesitate to contact us with questions. Someone can be reached from the [facility] hospitalist group all hours of the day at [phone] or via [employer]. Past Medical History Past Medical History: Hyperlipidemia, Hypertension, Musculoskeletal Disorder Additional Past Medical History / Comment(s): Scoliosis, Degenerative Joint Disease, Hiatal Hernia, hx Diverticulitis. History of Any Multi-Drug Resistant Organisms: None Reported Past Surgical History: Appendectomy, Back Surgery, Bowel Resection, Section, Cholecystectomy, Joint Replacement, Orthopedic Surgery, Tonsillectomy Additional Past Surgical History / Comment(s): Excison of avulsion fx R patella and patellar tendon repair, bilateral arthroscopic knee(total 5), bilateral knee replacements, 5 back surgeries, right neurectomy chest area. Past Anesthesia/Blood Transfusion Reactions: No Reported Reaction Past Psychological History: No Psychological Hx Reported Additional Psychological History / Comment(s): . Smoking Status: Never smoker Past Alcohol Use History: None Reported Past Drug Use History: None Reported - Past Family History Mother Family Medical History: Cancer Additional Family Medical History / Comment(s): . Father Family Medical History: Liver Disease Additional Family Medical History / Comment(s): "heart problems" Medications and Allergies Home Medications Medication Instructions Recorded Confirmed Type Lisinopril-Hctz 10-12.5 mg 1 tab PO HS 07/09/18 04/15/23 History [Zestoretic 10-12.5] Gabapentin 600 mg PO HS 06/27/20 04/15/23 History Cholecalciferol [Vitamin D3 (25 50 mcg PO DAILY 04/15/23 04/15/23 History Mcg = 1000 Iu)] Pravastatin Sodium [Pravachol] 20 mg PO HS 04/15/23 04/15/23 History Acetaminophen Tab [Tylenol] 650 mg PO Q6H #30 tab 04/19/23 Rx Docusate [Colace] 100 mg PO BID #20 capsule 04/19/23 Rx Ibuprofen [Motrin] 600 mg PO Q6HR PRN #40 tab 04/19/23 Rx oxyCODONE HCL [OxyIR] 5 mg PO Q6H PRN 3 Days #10 tab 04/19/23 Rx Allergies Allergy/AdvReac Type Severity Reaction Status Date / Time piperacillin sodium AdvReac Itching Verified 04/19/23 06:19 [From Zosyn] tazobactam sodium AdvReac Itching Verified 04/19/23 06:19 [From Zosyn] Physical Exam Vitals: Vital Signs Temp Pulse Pulse Pulse Resp BP BP 04/19/23 13:01 96.9 F L 74 14 132/84 04/19/23 11:00 97.6 F 57 L 14 123/83 04/19/23 10:30 55 L 18 131/80 04/19/23 09:55 52 L 18 142/62 04/19/23 09:45 65 18 140/67 04/19/23 09:30 57 L 18 153/70 04/19/23 09:15 68 18 140/68 04/19/23 09:00 70 20 152/72 04/19/23 08:46 96.9 F L 79 18 144/75 04/19/23 06:28 97.4 F L 60 16 125/70 Pulse Ox 04/19/23 13:01 99 04/19/23 11:00 97 04/19/23 10:30 96 04/19/23 09:55 97 04/19/23 09:45 99 04/19/23 09:30 100 04/19/23 09:15 100 04/19/23 09:00 98 04/19/23 08:46 95 04/19/23 06:28 99 Intake and Output 04/19/23 04/19/23 04/19/23 06:59 14:59 22:59 Intake Total 100 1650 Output Total 5 Balance 100 1645 Intake: IV 100 1650 Output: Estimated Blood Loss 5 Other: Weight 69.2 kg
[2023-04-19 19:52] VITALS: RESP 17
[2023-04-19] MEDS ORDERED: GABAPENTIN 300 MG CAP PO SCH (21:00)
[2023-04-19] MEDS ORDERED: LISINOPRIL-HCTZ 10-12.5 MG 1 EACH TAB PO SCH (21:00)
[2023-04-19] MEDS ORDERED: PRAVASTATIN SODIUM 20 MG TAB PO SCH (21:00)
[2023-04-20] MEDS: HYDROmorphone 0.5 MG/0.5 ML SYRINGE IVP PRN ×2 (03:57→09:46)
[2023-04-20 05:53] LABS: Basophils % (A) 0 %; Eosinophils # (A) 0.1 k/uL (0-0.7); Eosinophils % (A) 1 %; HCT 38.5 % (34.0-46.0); HGB 12.9 gm/dL (11.4-16.0); Lymphocytes # (A) 1.9 k/uL (1.0-4.8); Lymphocytes % (A) 20 %; MCHC 33.5 g/dL (31.0-37.0); MCV 92.7 fL (80.0-100.0); Mean Platelet Volume 8.9; Monocytes # (A) 0.6 k/uL (0-1.0); Monocytes % (A) 6 %; Neutrophils # (A) 7.1 k/uL (1.3-7.7); Neutrophils % (A) 72 %; Platelet Count 292 k/uL (150-450); RBC 4.15 m/uL (3.80-5.40); RDW 12.7 % (11.5-15.5); WBC 9.8 k/uL (3.8-10.6)
[2023-04-20 06:04] LABS: ALT 33 U/L (4-34); AST 43 U/L (14-36); African American GFR (CKD) >90 (>60 ml/min/1.73 sqM); Albumin 3.2 g/dL (3.5-5.0); Albumin/Globulin Ratio 1.3; Alkaline Phosphatase 56 U/L (38-126); Anion Gap 6 mmol/L; Blood Urea Nitrogen 15 mg/dL (7-17); Calcium 8.6 mg/dL (8.4-10.2); Carbon Dioxide 27 mmol/L (22-30); Chloride 98 mmol/L (98-107); Globulin 2.4 g/dL; Glucose 107 mg/dL (74-99); Non-African American GFR(CKD) 87 (>60 ml/min/1.73 sqM); Sodium 131 mmol/L (137-145); Total Bilirubin 0.7 mg/dL (0.2-1.3); Total Protein 5.6 g/dL (6.3-8.2)
[2023-04-20 07:19] VITALS: BP 117/73; PULSE 60; TEMP 98
[2023-04-20] MEDS ORDERED: CHOLECALCIFEROL 25 MCG (1000 IU) TABLET PO SCH (09:00)
[2023-04-20] MEDS ORDERED: ENOXAPARIN 40 MG/0.4 ML SYRINGE SQ SCH (09:00)
--- NOTE | 2023-04-20 12:44 | P.PN ---
Subjective Progress Note Date: 04/20/23 Principal diagnosis: GERD. S/p Celia fundoplication No complaints overnight. Chris diet, requesting d/c. Pain well controlled. Objective - Vital Signs Vital signs: Vital Signs Temp 98 F 04/20/23 07:08 Pulse 60 04/20/23 07:08 Resp 17 04/20/23 07:08 BP 117/73 04/20/23 07:08 Pulse Ox 96 04/20/23 07:08 FiO2 Intake & Output 04/19/23 04/20/23 04/20/23 18:59 06:59 18:59 Intake Total 1650 Output Total 5 Balance 1645 Intake: IV 1650 Output: Estimated Blood Loss 5 Other: Voiding Method Toilet Toilet # Voids 1 - Constitutional General appearance: Present: average body habitus, no acute distress - EENT Eyes: Present: EOMI, normal appearance - Respiratory Details: unlabored respirations - Cardiovascular Rhythm: regular - Gastrointestinal General gastrointestinal: Present: soft - Integumentary Integumentary: Present: normal turgor - Neurologic Neurologic: Present: CNII-XII intact - Musculoskeletal Musculoskeletal: Present: strength equal bilaterally - Psychiatric Psychiatric: Present: A&O x's 3, appropriate affect - Labs CBC & Chem 7: 04/20/23 05:36 04/20/23 05:36 Labs: Abnormal Lab Results - Last 24 Hours (Table) 04/20/23 Range/Units 05:36 Sodium 131 L (137-145) mmol/L Glucose 107 H (74-99) mg/dL AST 43 H (14-36) U/L Total Protein 5.6 L (6.3-8.2) g/dL Albumin 3.2 L (3.5-5.0) g/dL Assessment and Plan Assessment: pain controlled, instructed to remain on liquid diet until recheck with Dr Borrego (1) History of Celia fundoplication Current Visit: Yes Status: Acute Code(s): Z98.890 - OTHER SPECIFIED POSTPROCEDURAL STATES SNOMED Code(s): 310252629
--- NOTE | 2023-04-20 16:31 | P.PN ---
Subjective Progress Note Date: 04/20/23 (delayed charting seen at 1015) Patient is a 63-year-old male with history of hypertension, dyslipidemia, presenting for elective paraesophageal hiatal hernia repair. Patient seen and examined at bedside. She is passing gas, she has not had a bowel movement. She denies any significant abdominal pain but states it just feels like it is bruised underneath her left ribs. Denies any shortness of breath, nausea, vomiting. Wants to go home. Vital signs reviewed General: nontoxic, no distress, appears at stated age Cardiovascular: S1S2 reg, no murmur, positive posterior tibial pulse bilateral, Lungs: CTA bilateral, no rhonchi, no rales , no accessory muscle use Abdominal: soft, tender to palpation left upper quadrant, no guarding, no appreciable organomegaly Neuro: CN II-XI grossly intact, no focal neuro deficits Psych: Alert, oriented, appropriate affect Assessment/Plan: 63-year-old female status post paraesophageal hiatal hernia repair Hypertension Hyponatremia Dyslipidemia -Resume lisinopril/hydrochlorothiazide at home in a.m. -Added to discharge instructions for repeat basic metabolic profile in 3-4 days with results to her primary care physician. Patient is aware she needs repeat basic metabolic profile due to her use of hydrochlorothiazide in the postoperative setting. -May resume Pravachol 20 mg at night -Home medication reconciliation addressed. Order for repeat blood work printed. Left with nursing. -Patient medically optimized for discharge at the discretion of Gen. surgery. Imaging: None new Data Review: Vitals reviewed temperature 90.8, pulse 60, respirations 17, blood pressure 117/73, O2 sat 96% on room air Labs reviewed from this morning and remarkable for sodium 131, AST 43, albumin 3.2 This dictation was prepared using [employer] voice recognition software. Though every attempt is made to correct errors during dictation some may still exist. Objective - Vital Signs Vital signs: Vital Signs Temp 98 F 04/20/23 07:08 Pulse 60 04/20/23 07:08 Resp 17 04/20/23 07:08 BP 117/73 04/20/23 07:08 Pulse Ox 96 04/20/23 07:08 FiO2 Intake & Output 04/19/23 04/20/23 04/20/23 18:59 06:59 18:59 Intake Total 1650 Output Total 5 Balance 1645 Intake: IV 1650 Output: Estimated Blood Loss 5 Other: Voiding Method Toilet Toilet # Voids 1 1 - Labs CBC & Chem 7: 04/20/23 05:36 04/20/23 05:36 Labs: Abnormal Lab Results - Last 24 Hours (Table) 04/20/23 Range/Units 05:36 Sodium 131 L (137-145) mmol/L Glucose 107 H (74-99) mg/dL AST 43 H (14-36) U/L Total Protein 5.6 L (6.3-8.2) g/dL Albumin 3.2 L (3.5-5.0) g/dL
== END 2023-04-20 13:07 | disposition home or self-care (01) ==
LOC: OR 05:38 → 5NMEDONC 08:46 → OR 04-20 13:07
PROVIDERS: ATTEND Surgery
DX: K44.9 Diaphragmatic hernia without obstruction or gangrene (principal); I10 Essential (primary) hypertension; E78.5 Hyperlipidemia, unspecified; M19.90 Unspecified osteoarthritis, unspecified site; Z90.89 Acquired absence of other organs; Z98.891 History of uterine scar from previous surgery; Z79.899 Other long term (current) drug therapy; Z90.49 Acquired absence of other specified parts of digestive tract; Z96.653 Presence of artificial knee joint, bilateral
CPT/HCPCS: 80053; 85025; 43282; C1781; J1100; J2765; J0690; J2405; J1650; J1170 ×2; J1644; J0665

== ENCOUNTER → 2023-08-16 | Outpatient (CLI) | payer MEDICARE ==
--- NOTE | 2023-08-16 08:42 | MM ---
Reason for Exam: Follow-up at short interval from prior study. Last screening mammogram was performed 6 month(s) ago. Patient History: Menarche at age 10. First Full-Term at age 24. Postmenopausal. Patient has history of breast feeding. 08/30/2003, Benign Stereotactic Core Biopsy on the right side. Risk Values: Sandra 5 year model risk: 2.2%. NCI Lifetime model risk: 8.2%. Prior Study Comparison: 01/12/2003 Bilateral Screening Mammogram, [facility]. 08/13/2003 Right Special View Mammogram, [facility]. 06/16/2004 Bilateral Diagnostic Mammogram, [facility]. 09/17/2006 Bilateral Diagnostic Mammogram, [facility]. 01/30/2023 Bilateral MG screening mammo w CAD, [facility]. Tissue Density: Right: There are scattered fibroglandular densities. Findings: Analyzed By CAD. Nodularity in the lateral aspect of the right breast remains unchanged for 6 months. Asymmetric density medially with microclip related to prior biopsy is also unchanged. Subareolar lateral asymmetric density also unchanged. No significant change from prior exam. Ongoing short interval follow-up recommended. Overall Assessment: Probably benign, BI-RAD 3 Management: Diagnostic Mammogram of both breasts in 6 months. Total one-year follow-up right breast and annual exam of the left breast. Results were given to the patient verbally at the time of exam. Patient should continue monthly self-breast exams. A clinical breast exam by your physician is recommended on an annual basis. This exam should not preclude additional follow-up of suspicious palpable abnormalities. Note on Sandra scores and lifetime risk: 1. A Sandra score greater than 3% is considered moderate risk. If this is the case, consider specialist referral to assess eligibility for a risk reducing agent. 2. If overall lifetime risk for the development of breast cancer is 20% or higher, the patient may qualify for future screening with alternating mammogram and breast MRI. Electronically signed and approved by: Ivette Delaney M.D. Radiologist
== END | disposition home or self-care (01) ==
LOC: RADMAMWWP 07:54
PROVIDERS: ATTEND Internal Medicine
DX: R92.321 Mammographic fibroglandular density, right breast (principal); Z78.0 Asymptomatic menopausal state
CPT/HCPCS: 77065; G0279; 77061

== ENCOUNTER → 2024-03-04 | Outpatient (CLI) | payer MEDICARE ==
--- NOTE | 2024-03-04 08:12 | MM ---
Reason for Exam: Follow-up at short interval from prior study. Last mammogram was performed 1 year(s) and 1 month(s) ago. Patient History: Menarche at age 10. First Full-Term at age 24. Postmenopausal. Patient has history of breast feeding. 08/30/2003, Benign Stereotactic Core Biopsy on the right side. Risk Values: Sandra 5 year model risk: 2.2%. NCI Lifetime model risk: 7.9%. Prior Study Comparison: 01/30/2023 Bilateral MG screening mammo w CAD, [facility]. 08/16/2023 Right MG 3D diag mammo w/cad RT, [facility]. Tissue Density: There are scattered areas of fibroglandular density. Findings: Analyzed By CAD. The pattern is symmetrical. There is a 0.7 cm rounded density upper outer right breast 5 cm from the nipple. This was present previously and stable. Previously reported as a cyst. The core marker is within the right breast. Benign calcifications within the anterior left breast. No suspicious groups of microcalcifications, spiculated or lobular masses, architectural distortion or other secondary signs of malignancy are mammographically apparent. Overall Assessment: Benign, BI-RAD 2 Management: Screening Mammogram of both breasts in 1 year. A negative mammogram report should not preclude additional follow up of suspicious palpable abnormalities. Patient should continue monthly self breast exam. A clinical breast exam by your physician is recommended on an annual basis and results should be correlated with mammographic findings. Note on Sandra scores and lifetime risk: 1. A Sandra score greater than 3% is considered moderate risk. If this is the case, consider specialist referral to assess eligibility for a risk reducing agent. 2. If overall lifetime risk for the development of breast cancer is 20% or higher, the patient may qualify for future screening with alternating mammogram and breast MRI. Electronically signed and approved by: Vipul Peterson D.O. Radiologis
== END | disposition home or self-care (01) ==
LOC: RADMAMWWP 07:48
PROVIDERS: ATTEND Internal Medicine
DX: R92.323 Mammographic fibroglandular density, bilateral breasts (principal); R92.8 Other abnormal and inconclusive findings on diagnostic imaging of breast; Z78.0 Asymptomatic menopausal state
CPT/HCPCS: 77066; G0279; 77062

== ENCOUNTER 2024-12-29 11:02 | Emergency (ER) | payer MEDICARE ==
[2024-12-29 11:08] VITALS: RESP 16
--- NOTE | 2024-12-29 11:33 | ED ---
General Adult HPI - General Chief complaint: Recheck/Abnormal Lab/Rx Stated complaint: AMS Time Seen by Provider: 12/29/24 11:22 Source: patient, EMS, RN notes reviewed Mode of arrival: EMS Limitations: altered mental status - History of Present Illness Initial comments: 64-year-old male sent from dentist office for lethargy. Patient was undergoing a filling and was given a local Septocaine injection and immediately after began to become extremely fatigued and stated she could not open her eyes. States she is not confused. They sent her here for further evaluation. Denies any pain. Denies chest pain, shortness of breath, headache. - Related Data Home Medications Medication Instructions Recorded Confirmed Lisinopril-Hctz 10-12.5 mg 1 tab PO HS 07/09/18 04/15/23 [Zestoretic 10-12.5] Gabapentin 600 mg PO HS 06/27/20 04/15/23 Cholecalciferol [Vitamin D3 (25 50 mcg PO DAILY 04/15/23 04/15/23 Mcg = 1000 Iu)] Pravastatin Sodium [Pravachol] 20 mg PO HS 04/15/23 04/15/23 Previous Rx's Medication Instructions Recorded Acetaminophen Tab [Tylenol] 650 mg PO Q6H #30 tab 04/19/23 Docusate [Colace] 100 mg PO BID #20 capsule 04/19/23 Ibuprofen [Motrin] 600 mg PO Q6HR PRN #40 tab 04/19/23 oxyCODONE HCL/ACETAMINOPHEN 1 tab PO Q6HR PRN 3 Days #15 tab 04/20/23 [Percocet 5-325 mg] Allergies Allergy/AdvReac Type Severity Reaction Status Date / Time piperacillin sodium AdvReac Itching Verified 04/19/23 06:19 [From Zosyn] tazobactam sodium AdvReac Itching Verified 04/19/23 06:19 [From Zosyn] Review of Systems ROS Statement: Those systems with pertinent positive or pertinent negative responses have been documented in the HPI. ROS Other: All systems not noted in ROS Statement are negative. Past Medical History Past Medical History: Hyperlipidemia, Hypertension, Musculoskeletal Disorder Additional Past Medical History / Comment(s): Scoliosis, Degenerative Joint Dis ease, Hiatal Hernia, hx Diverticulitis. History of Any Multi-Drug Resistant Organisms: None Reported Past Surgical History: Appendectomy, Back Surgery, Bowel Resection, Section, Cholecystectomy, Joint Replacement, Orthopedic Surgery, Tonsillectomy Additional Past Surgical History / Comment(s): Excison of avulsion fx R patella and patellar tendon repair, bilateral arthroscopic knee(total 5), bilateral knee replacements, 4 back surgeries, right neurectomy chest area. Past Anesthesia/Blood Transfusion Reactions: No Reported Reaction Past Psychological History: No Psychological Hx Reported Smoking Status: Never smoker Past Alcohol Use History: None Reported Past Drug Use History: None Reported - Past Family History Mother Family Medical History: Cancer Additional Family Medical History / Comment(s): . Father Family Medical History: Liver Disease Additional Family Medical History / Comment(s): "heart problems" General Exam Limitations: altered mental status General appearance: in no apparent distress, lethargic Head exam: Present: atraumatic, normocephalic, normal inspection Eye exam: Present: normal appearance, PERRL, EOMI. Absent: scleral icterus, conjunctival injection, periorbital swelling ENT exam: Present: normal exam, normal oropharynx, mucous membranes moist Neck exam: Present: normal inspection. Absent: tenderness, meningismus, lymphadenopathy Respiratory exam: Present: normal lung sounds bilaterally. Absent: respiratory distress, wheezes, rales, rhonchi, stridor Cardiovascular Exam: Present: regular rate, normal rhythm, normal heart sounds. Absent: systolic murmur, diastolic murmur, rubs, gallop, clicks Neurological exam: Present: oriented X3. Absent: alert (Lethargic on stretcher and slow to answer questions) Psychiatric exam: Present: normal affect, normal mood Skin exam: Present: warm, dry, intact, normal color. Absent: rash Course Vital Signs 12/29/24 12/29/24 12/29/24 11:03 11:08 12:26 Temperature 98.3 F 98.4 F Pulse Rate 58 L 57 L Respiratory 16 16 Rate Blood Pressure 174/87 159/90 O2 Sat by Pulse 97 99 Oximetry EKG Findings - EKG Results: EKG: interpreted by ERMD (EKG reveals sinus bradycardia with no acute ST changes. Ventricular rate 58 bpm, VT interval 161, QRS duration 85, QT/QTc 410/408) Medical Decision Making - Medical Decision Making Was pt. sent in by a medical professional or institution (, PA, GRINDER, urgent care, hospital, or usp...) When possible be specific @ -No Did you speak to anyone other than the patient for history (EMS, parent, family, police, friend...)? What history was obtained from this source @ -No Did you review nursing and triage notes (agree or disagree)? Why? @ -I reviewed and agree with nursing and triage notes Were old charts reviewed (outside hosp., previous admission, EMS record, old EKG, old radiological studies, urgent care reports/EKG's, usp records)? Report findings @ -No old charts were reviewed Differential Diagnosis (chest pain, altered mental status, abdominal pain women, abdominal pain men, vaginal bleeding, weakness, fever, dyspnea, syncope, headache, dizziness, GI bleed, back pain, seizure, CVA, palpatations, mental health, musculoskeletal)? @ -Vasovagal syncope, allergic reaction, medication side effect EKG interpreted by me (3pts min.). @ -As above X-rays interpreted by me (1pt min.). @ -None done CT interpreted by me (1pt min.). @ -None done U/S interpreted by me (1pt. min.). @ -None done What testing was considered but not performed or refused? (CT, X-rays, U/S, labs)? Why? @ -None What meds were considered but not given or refused? Why? @ -None Did you discuss the management of the patient with other professionals (professionals i.e. , PA, GRINDER, lab, RT, psych nurse, social director, access representative, teacher, commanding officer motorized squad, briefcase sewer)? Give summary @ -No Was smoking cessation discussed for >3mins.? @ -No Was critical care preformed (if so, how long)? @ -No Were there social determinants of health that impacted care today? How? (Homelessness, low income, unemployed, alcoholism, drug addiction, transportation, low edu. Level, literacy, decrease access to med. care, fci, rehab)? @ -No Was there de-escalation of care discussed even if they declined (Discuss DNR or withdrawal of care, Hospice)? DNR status @ -No What co-morbidities impacted this encounter? (DM, HTN, Smoking, COPD, CAD, Cancer, CVA, ARF, Chemo, Hep., AIDS, mental health diagnosis, sleep apnea, morbid obesity)? @ -None Was patient admitted / discharged? Hospital course, mention meds given and route, prescriptions, significant lab abnormalities, going to OR and other pertinent info. @ -Discharge. 64-year-old female sent from dentist for lethargy after receiving local Septocaine injection for filling. No difficulty breathing or swallowing. Patient is lethargic and slow to answer questions. Patient is oriented x 3 and states she is not confused, just tired. EKG reveals sinus bradycardia at 58 bpm with no acute ST changes. Basic lab work unremarkable. Upon reevaluation, patient reports symptoms have improved and she would like to be discharged. Patient is no longer lethargic and is alert and acting appropriately. Symptoms likely due to vasovagal syncope status post Septocaine injection. Appropriate return precautions and follow-up care discussed. Patient is agreeable to plan. Case was discussed with my ED attending Dr. Hernandez. Undiagnosed new problem with uncertain prognosis? @ -No Drug Therapy requiring intensive monitoring for toxicity (Heparin, Nitro, Insulin, Cardizem)? @ -No Were any procedures done? @ -No Diagnosis/symptom? @ -Vasovagal reaction Acute, or Chronic, or Acute on Chronic? @ -Acute Uncomplicated (without systemic symptoms) or Complicated (systemic symptoms)? @ -Complicated Side effects of treatment? @ -No Exacerbation, Progression, or Severe Exacerbation? @ -No Poses a threat to life or bodily function? How? (Chest pain, USA, HI, pneumonia, PE, COPD, DKA, ARF, appy, cholecystitis, CVA, Diverticulitis, Homicidal, Suicidal, threat to staff... and all critical care pts) @ -No - Lab Data Result diagrams: 12/29/24 11:41 12/29/24 11:41 Lab Results 12/29/24 12/29/24 Range/Units 11:41 11:41 WBC 6.90 (4.50-10.00) 10*3/uL RBC 5.05 (4.10-5.20) 10*6/uL Hgb 15.6 H (12.0-15.0) g/dL Hct 45.6 (37.2-46.3) % MCV 90.3 (80.0-97.0) fL MCH 30.9 (27.0-32.0) pg MCHC 34.2 (32.0-37.0) g/dL Plt Count 318 (140-440) 10*3/uL MPV 10.4 (9.5-12.2) fL Immature Gran % (Auto) 0.3 % Neutrophils % 56.3 % Lymphocytes % 30.6 % Monocytes % 7.0 % Eosinophils % 3.3 % Basophils % 2.5 % Immature Gran # 0.02 (0.00-0.04) 10*3/uL Neutrophils # 3.89 (1.80-7.70) 10*3/uL Lymphocytes # 2.11 (0.90-5.00) 10*3/uL Monocytes # 0.48 (0.20-1.00) 10*3/uL Eosinophils # 0.23 (0.04-0.35) 10*3/uL Basophils # 0.17 H (0.00-0.10) 10*3/uL Sodium 138 (137-145) mmol/L Potassium 3.6 (3.5-5.1) mmol/L Chloride 103 (98-107) mmol/L Carbon Dioxide 24 (22-30) mmol/L Anion Gap 11 mmol/L BUN 17 (7-17) mg/dL Creatinine 0.78 (0.52-1.04) mg/dL Est GFR (CKD-EPI)AfAm >90 (>60 ml/min/1.73 sqM) Est GFR (CKD-EPI)NonAf 80 (>60 ml/min/1.73 sqM) Glucose 127 H (74-99) mg/dL Calcium 9.7 (8.4-10.2) mg/dL Total Bilirubin 0.9 (0.2-1.3) mg/dL AST 25 (14-36) U/L ALT 21 (4-34) U/L Alkaline Phosphatase 79 (38-126) U/L Total Protein 7.2 (6.3-8.2) g/dL Albumin 4.2 (3.5-5.0) g/dL Disposition Clinical Impression: Vasovagal reaction Disposition: HOME SELF-CARE Condition: Stable Additional Instructions: Please return to the Emergency Department if symptoms worsen or any other concerns. Is patient prescribed a controlled substance at d/c from ED?: No Referrals: Blue Garcia DO [Primary Care Provider] - 1-2 days Time of Disposition: 12:38
[2024-12-29] MEDS: SODIUM CHLORIDE 0.9% 1,000 ML IV STA (11:44)
[2024-12-29 11:47] LABS: Basophils # (A) 0.17 10*3/uL (0.00-0.10); Basophils % (A) 2.5 %; Eosinophils # (A) 0.23 10*3/uL (0.04-0.35); Eosinophils % (A) 3.3 %; HCT 45.6 % (37.2-46.3); HGB 15.6 g/dL (12.0-15.0); Lymphocytes # (A) 2.11 10*3/uL (0.90-5.00); Lymphocytes % (A) 30.6 %; MCH 30.9 pg (27.0-32.0); MCHC 34.2 g/dL (32.0-37.0); MCV 90.3 fL (80.0-97.0); Mean Platelet Volume 10.4 fL (9.5-12.2); Monocytes # (A) 0.48 10*3/uL (0.20-1.00); Neutrophils # (A) 3.89 10*3/uL (1.80-7.70); Neutrophils % (A) 56.3 %; Platelet Count 318 10*3/uL (140-440); RBC 5.05 10*6/uL (4.10-5.20)
[2024-12-29 12:14] LABS: ALT 21 U/L (4-34); AST 25 U/L (14-36); African American GFR (CKD) >90 (>60 ml/min/1.73 sqM); Albumin 4.2 g/dL (3.5-5.0); Alkaline Phosphatase 79 U/L (38-126); Anion Gap 11 mmol/L; Blood Urea Nitrogen 17 mg/dL (7-17); Calcium 9.7 mg/dL (8.4-10.2); Carbon Dioxide 24 mmol/L (22-30); Chloride 103 mmol/L (98-107); Glucose 127 mg/dL (74-99); Non-African American GFR(CKD) 80 (>60 ml/min/1.73 sqM); Potassium 3.6 mmol/L (3.5-5.1); Sodium 138 mmol/L (137-145); Total Bilirubin 0.9 mg/dL (0.2-1.3); Total Protein 7.2 g/dL (6.3-8.2)
[2024-12-29 12:27] VITALS: BP 159/90; PULSE 57; TEMP 98.4
== END 2024-12-29 13:19 | disposition home or self-care (01) ==
LOC: EC 11:02
DX: R55 Syncope and collapse (principal); Z88.8 Allergy status to other drugs, medicaments and biological substances
CPT/HCPCS: 36415; 80053; 85025; 93005; 96360; 99285